=== PATIENT | female | born 1985 | race Caucasian/White ===

== ENCOUNTER 2022-03-11 01:27 | Inpatient (IN) ==
--- NOTE | 2022-03-11 01:42 | Emergency Department Note ---
Impression & Plan Tachycardia Admit to the [facility] ED Provider Note NAME: RADHA LINDSAY AGE: 36 SEX: F ARRIVES VIA: Walk-In INFORMANT: Patient ED PROVIDER(S): Nely Linder DO CHIEF COMPLAINT: Tachycardia PLAN: Disposition: Admit to the [facility] service Condition: Fair MEDICAL DECISION MAKING: This is a 36-year-old female patient who presents to the emergency department with tachycardia. Patient had a sudden onset of tachycardia around 3 PM this afternoon. She wears an apple watch with a heart monitor which alerted her that her heart rate was elevated. A similar event happened 2 days ago when the patient noted that her heart rate was elevated and she came to the emergency department. Patient appears to be in sinus tachycardia at around 140. Despite giving the patient IV fluids and IV Ativan, the rate did not go down. I did review the trend on her watch and it appears that the rate went up abruptly from the 60s to the 130s/140s yesterday afternoon. The patient had a significant work-up done just [address] scan of the chest to rule out PE, test, TSH, and CT scan of the abdomen/pelvis. This was all unremarkable. Patient is developing a migraine here today and will be treated with pain medication. [facility] and [facility] will evaluate for further management. I suggested CT scan of the brain as another possible test to rule out any acute pathology. Triage Nursing notes reviewed and agree with them. Prior medical records reviewed including records from her recent ER visit 2 days ago. Vital Signs: reviewed and remarkable for CARDIAC: No chest pain, sweating, shortness of breath, leg swelling, or irregular heart beat. Differential diagnosis: Dehydration, anxiety, hypothyroidism, pheochromocytoma, medication side effects ER treatment provided: IV Ativan IV normal saline bolus Diagnostics interpreted by me: ECG: Sinus tachycardia at a rate of [address] segment elevation or signs of ischemia. Cardiac Monitoring: Normal sinus rhythm of 130 Laboratory studies: See below HPI: 36/F arrives for evaluation of tachycardia. Patient states that around 3 PM this afternoon her heart rate shot up into the 130s from the 60s for no apparent reason. She denies any other associated symptoms. The patient has a history of chronic abdominal pain and states that she has discomfort when she is up walking around. She underwent a CT scan of the abdomen/pelvis just 2 days ago with no clear source for the abdominal pain. ROS: See above HPI for pertinent positives & negatives. A total of 10 systems reviewed and were otherwise negative. PAST MEDICAL HISTORY:See Below PAST SURGICAL HISTORY:See Below FAMILY HISTORY:See Below SOCIAL HISTORY:See Below HOME MEDICATIONS:See Below ALLERGIES:See Below VITALS:See Below PHYSICAL EXAMINATION: HEENT: Head - normocephalic and atraumatic Pupils are equal, round, and reactive to light. Extraocular eye muscles are intact, and sclera are anicteric. Nose - moist nasal mucosa without discharge. Mouth - moist buccal mucosa. Oropharynx is nonerythematous and there is no tonsillar exudate or edema noted. Neck: Supple; no cervical lymphadenopathy or thyromegaly Heart: Tachycardic rate and regular rhythm. There is a normal S1 and S2 with no murmurs, clicks, or gallops appreciated. Lungs: Clear to auscultation bilaterally with no wheezes, rales, or rhonchi. Abdomen: Soft, completely nontender, nondistended, with good bowel sounds. There are no palpable pulsatile masses or hepatosplenomegaly. There is no guarding, rigidity, or rebound noted. Extremities: No evidence of cyanosis, clubbing, or edema. There are easily palpable peripheral pulses. Skin: warm and dry with good turgor and no rashes. ED COURSE: Times/Reassessments: 140: The patient was evaluated in room A10. A complete history and physical was performed. Previous electronic medical records were reviewed. An order was placed for continuous cardiac monitoring. Patient was in a sinus tachycardia at a rate of 130. An IV lock was initiated and labs were drawn as above. A twelve-lead EKG was obtained. She was given a milligram of IV Ativan. Had no effect on her heart rate. Patient was given a liter of normal saline solution wide open. Again the heart rate was not affected by this. Nely Linder DO Past Med/Surg History Medical History (Updated 03/11/22 @ 07:29 by Nely Linder DO) Anxiety History of umbilical hernia Kidney stones Menometrorrhagia Ovarian cyst Surgical History (Updated 02/21/22 @ 17:30 by Hany Sosa) History of abdominoplasty Social History (Updated 02/21/22 @ 17:31 by Hany Sosa) Smoking Status: Never smoker marital status: Single current occupational status: employed Feels Safe at Home: Yes Allergies Allergies Allergy/AdvReac Type Severity Reaction Status Date / Time NSAIDS (Non-Steroidal AdvReac Intermediate GI ulcer Verified 03/08/22 16:17 Anti-Inflamma Home Meds Home Medications Medication Instructions Recorded Confirmed fluoxetine 20 mg capsule 20 mg PO QAM 02/21/22 03/08/22 multivitamin 1 tab PO QAM 02/21/22 03/08/22 oxycodone-acetaminophen 5 mg-325 1 tab PO Q6 PRN 03/08/22 03/08/22 mg tablet tamsulosin 0.4 mg capsule 0.4 mg PO QAM 03/08/22 03/08/22 Previous Rx's Medication Instructions Recorded ondansetron 4 mg disintegrating 4 mg PO Q6H PRN #10 tab 02/21/22 tablet Results & Data (ED) Vital Signs Vital Signs - 24 hr 03/11/22 01:31 03/11/22 01:40 03/11/22 01:50 Temperature 36.9 C Temperature Source Temporal Artery Scan Pulse Rate 130 H 140 H Pulse Rate from SpO2 Sensor Respiratory Rate 22 15 Respiratory Effort / Characteristics Non-Labored Respiratory Depth Normal Blood Pressure 132/94 132/89 Blood Pressure Mean 106 103 Blood Pressure Position Sitting Pulse Oximetry 99 Oxygen Delivery Method Room Air Sepsis Recent Fever Within 48 Hours No Sepsis New/Unexplained Change in Mental Status N/A Sepsis Action Taken by Nursing No Action Required 03/11/22 01:54 03/11/22 02:09 03/11/22 02:10 Temperature Temperature Source Pulse Rate 130 H 128 H Pulse Rate from SpO2 Sensor 129 H 128 H Respiratory Rate 17 22 Respiratory Effort / Characteristics Respiratory Depth Blood Pressure Blood Pressure Mean Blood Pressure Position Pulse Oximetry 97 97 Oxygen Delivery Method Room Air Sepsis Recent Fever Within 48 Hours Sepsis New/Unexplained Change in Mental Status Sepsis Action Taken by Nursing 03/11/22 02:20 03/11/22 02:30 03/11/22 02:40 Temperature Temperature Source Pulse Rate 131 H 134 H 127 H Pulse Rate from SpO2 Sensor 131 H 135 H 127 H Respiratory Rate 18 22 23 Respiratory Effort / Characteristics Respiratory Depth Blood Pressure Blood Pressure Mean Blood Pressure Position Pulse Oximetry 98 99 98 Oxygen Delivery Method Sepsis Recent Fever Within 48 Hours Sepsis New/Unexplained Change in Mental Status Sepsis Action Taken by Nursing 03/11/22 02:50 03/11/22 03:00 03/11/22 03:10 Temperature Temperature Source Pulse Rate 136 H 137 H 140 H Pulse Rate from SpO2 Sensor 137 H 137 H 140 H Respiratory Rate 19 20 18 Respiratory Effort / Characteristics Respiratory Depth Blood Pressure Blood Pressure Mean Blood Pressure Position Pulse Oximetry 100 99 99 Oxygen Delivery Method Sepsis Recent Fever Within 48 Hours Sepsis New/Unexplained Change in Mental Status Sepsis Action Taken by Nursing 03/11/22 03:20 03/11/22 03:30 03/11/22 03:40 Temperature Temperature Source Pulse Rate 138 H 133 H 130 H Pulse Rate from SpO2 Sensor 137 H 133 H 131 H Respiratory Rate 21 21 23 Respiratory Effort / Characteristics Respiratory Depth Blood Pressure 116/74 Blood Pressure Mean 88 Blood Pressure Position Pulse Oximetry 100 99 99 Oxygen Delivery Method Sepsis Recent Fever Within 48 Hours Sepsis New/Unexplained Change in Mental Status Sepsis Action Taken by Nursing 03/11/22 03:54 03/11/22 04:00 03/11/22 04:10 Temperature Temperature Source Pulse Rate Pulse Rate from SpO2 Sensor 133 H 131 H 127 H Respiratory Rate Respiratory Effort / Characteristics Respiratory Depth Blood Pressure Blood Pressure Mean Blood Pressure Position Pulse Oximetry 99 99 99 Oxygen Delivery Method Sepsis Recent Fever Within 48 Hours Sepsis New/Unexplained Change in Mental Status Sepsis Action Taken by Nursing 03/11/22 04:23 03/11/22 04:28 03/11/22 04:30 Temperature Temperature Source Pulse Rate 133 H 134 H Pulse Rate from SpO2 Sensor 134 H 134 H Respiratory Rate 16 15 Respiratory Effort / Characteristics Respiratory Depth Blood Pressure 112/80 112/80 123/83 Blood Pressure Mean 90 90 96 Blood Pressure Position Pulse Oximetry 98 96 Oxygen Delivery Method Sepsis Recent Fever Within 48 Hours Sepsis New/Unexplained Change in Mental Status Sepsis Action Taken by Nursing 03/11/22 05:00 03/11/22 05:43 03/11/22 05:45 Temperature Temperature Source Pulse Rate 135 H 130 H 125 H Pulse Rate from SpO2 Sensor 136 H 124 H Respiratory Rate 16 15 14 Respiratory Effort / Characteristics Respiratory Depth Blood Pressure 144/95 H 132/94 Blood Pressure Mean 111 106 Blood Pressure Position Pulse Oximetry 97 98 Oxygen Delivery Method Sepsis Recent Fever Within 48 Hours Sepsis New/Unexplained Change in Mental Status Sepsis Action Taken by Nursing 03/11/22 06:00 03/11/22 06:30 03/11/22 07:00 Temperature Temperature Source Pulse Rate 125 H 127 H 127 H Pulse Rate from SpO2 Sensor 125 H 127 H 128 H Respiratory Rate 16 17 15 Respiratory Effort / Characteristics Respiratory Depth Blood Pressure 138/85 136/82 133/88 Blood Pressure Mean 102 100 103 Blood Pressure Position Pulse Oximetry 96 97 97 Oxygen Delivery Method Sepsis Recent Fever Within 48 Hours Sepsis New/Unexplained Change in Mental Status Sepsis Action Taken by Nursing Laboratory Data Result diagrams: 03/11/22 Unknown 03/11/22 01:45 Lab Results 03/11/22 03/11/22 03/11/22 Range/Units 01:45 04:24 Unknown WBC 11.03 H (4.8-10.8) K/uL RBC 4.16 L (4.2-5.4) M/uL Hgb 12.8 (12.0-16.0) g/dL Hct 38.0 (37-47) % MCV 91.3 (80-100) fL MCH 30.8 (25-34) pg MCHC 33.7 (32-36) g/dL RDW Std Deviation 44.2 (36.4-46.3) fL RDW Coeff of Mak 13.3 (11.5-14.5) % Plt Count 389 (130-400) K/uL MPV 8.9 (7.4-10.4) fL Immature Gran % (Auto) 0.5 % Neut % (Auto) 58.9 % Lymph % (Auto) 31.5 % [place] % (Auto) 6.5 % Eos % (Auto) 2.1 % Baso % (Auto) 0.5 % Neut # (Auto) 6.50 (1.4-6.5) K/uL Lymph # (Auto) 3.47 H (1.2-3.4) K/uL [place] # (Auto) 0.72 H (0.11-0.59) K/uL Eos # (Auto) 0.23 (0-0.5) K/uL Baso # (Auto) 0.05 (0-0.2) K/uL Immature Gran # (Auto) 0.06 H (0.00-0.02) K/uL Sodium 137 (136-145) mmol/L Potassium 3.5 (3.5-5.1) mmol/L Chloride 102 (98-107) mmol/L Carbon Dioxide 26 (21-32) mmol/L Anion Gap 9 (3-11) BUN 6 (6-23) mg/dl Creatinine 0.64 (0.6-1.2) mg/dl Est Cr Clr Drug Dosing 109.7 ml/min Est GFR ( Amer) 131.2 ml/min Est GFR (Non-Af Amer) 113.2 ml/min BUN/Creatinine Ratio 9.4 L (10-20) Glucose 96 (70-99(Fasting)) mg/dl Calcium 9.2 (8.5-10.1) mg/dl Magnesium 1.6 L (1.7-2.4) mg/dl Total Bilirubin 0.3 (0.2-1.0) mg/dl AST 15 (13-39) U/L ALT 9 (7-52) U/L Alkaline Phosphatase 49 (34-104) U/L Total Protein 7.2 (6.0-8.3) gm/dl Albumin 4.4 (3.4-5.0) gm/dl Globulin 2.8 (2.5-4.0) gm/dl Albumin/Globulin Ratio 1.6 (0.9-2) SARS-CoV-2, RNA, NAAT NEGATIVE (NEGATIVE) Administered Medications Discontinued Medications Hydromorphone HCl (Hydromorphone Inj 1 Mg/Ml Syringe) 1 mg IV NOW STA Stop: 03/11/22 03:59 Last Admin: 03/11/22 04:21 Dose: 1 mg Documented by: [id number] Sodium Chloride (Nss 1000ml) 1,000 mls @ 999 mls/hr IV .Q1H1M ONE Stop: 03/11/22 03:29 Last Infusion: 03/11/22 04:13 Dose: 0 mls/hr Documented by: [id number] Admin: 03/11/22 02:38 Dose: 999 mls/hr Documented by: [id number] Magnesium Sulfate/Dextrose (Magnesium Sulfate / D5w) 1 gm in 100 mls @ 50 mls/hr IV Q2H STA Stop: 03/11/22 07:22 Last Admin: 03/11/22 05:38 Dose: 50 mls/hr Documented by: [id number] Lorazepam (Lorazepam 2 Mg/1 Ml Vial) 1 mg IV NOW STA Stop: 03/11/22 01:58 Last Admin: 03/11/22 02:03 Dose: 1 mg Documented by: [id number] Ondansetron HCl (Ondansetron Inj 2 Mg/Ml 2 Ml Vial) 4 mg IV NOW STA Stop: 03/11/22 03:58 Last Admin: 03/11/22 04:21 Dose: 4 mg Documented by: [id number] Imaging Data Radiologist's Impression: Head CT 03/11/22 05:[address] DOSE: 614.27 mGy.cm HISTORY: headache TECHNIQUE: Multiaxial CT images of the head were performed without the use of intravenous contrast. Automated exposure control was utilized for this study. A dose lowering technique was utilized adhering to the principles of ALARA. Comparison: None. Findings: The paranasal sinuses and mastoid air cells are clear. The calvarium and skull base are intact. The ventricles and sulci are within normal limits. There is no mass, hematoma, midline shift, or acute infarct. Impression: No acute intracranial abnormality. ACT 112: Negative or not required by law. Electronically signed by: Suresh Carrion M.D. 03/11/2022 7:24 AM Discharge Plan Visit Data Chief Complaint: Tachycardia Stated Complaint: HIGH HEART RATE ED Provider: Nely Linder Discharge Problem: Tachycardia
[2022-03-11] MEDS ORDERED: LORazepam 2 MG/1 ML VIAL IV STA (01:57)
[2022-03-11 02:04] LABS: Basophils # (auto) 0.05 K/uL (0-0.2); Basophils % (auto) 0.5 %; Eosinophils # (auto) 0.23 K/uL (0-0.5); Eosinophils % (auto) 2.1 %; Hemoglobin 12.8 g/dL (12.0-16.0); Immature Granulocytes # (auto) 0.06 K/uL (0.00-0.02); Immature Granulocytes % (auto) 0.5 %; Lymphocytes # (auto) 3.47 K/uL (1.2-3.4); Lymphocytes % (auto) 31.5 %; Mean Corpuscular Hemoglobin 30.8 pg (25-34); Mean Corpuscular Hgb Conc 33.7 g/dL (32-36); Mean Corpuscular Volume 91.3 fL (80-100); Mean Platelet Volume 8.9 fL (7.4-10.4); Monocytes # (auto) 0.72 K/uL (0.11-0.59); Monocytes % (auto) 6.5 %; Neutrophils % (auto) 58.9 %; Platelet Count 389 K/uL (130-400); RDW Coefficient of Variation 13.3 % (11.5-14.5); RDW Standard Deviation 44.2 fL (36.4-46.3); Red Blood Count 4.16 M/uL (4.2-5.4); White Blood Count 11.03 K/uL (4.8-10.8)
[2022-03-11] MEDS ORDERED: SODIUM CHLORIDE 0.9% 1000ML 1,000 ML IV ONE (02:29)
[2022-03-11 02:30] LABS: Albumin Globulin Ratio 1.6 (0.9-2); Albumin Level 4.4 gm/dl (3.4-5.0); BUN Creatinine Ratio 9.4 (10-20); Bilirubin,Total 0.3 mg/dl (0.2-1.0); Calcium 9.2 mg/dl (8.5-10.1); Creatinine Clr Calc Pharmacy 109.7 ml/min; Est GFR (African American) 131.2 ml/min; Est GFR (Non-African American) 113.2 ml/min; Globulin 2.8 gm/dl (2.5-4.0); Magnesium 1.6 mg/dl (1.7-2.4); Potassium 3.5 mmol/L (3.5-5.1); Total Protein 7.2 gm/dl (6.0-8.3)
[2022-03-11] MEDS ORDERED: ONDANSETRON INJ 2 MG/ML 2 ML VIAL IV STA (03:57)
[2022-03-11] MEDS ORDERED: HYDROmorphone INJ 1 MG/ML SYRINGE IV STA (03:58)
[2022-03-11] MEDS ORDERED: MAGNESIUM SULFATE / D5W 1 GM/100 ML BAG IV STA (05:23)
--- NOTE | 2022-03-11 07:26 | CT Scan Report ---
HEAD CT NONCONTRAST CT DOSE: 614.27 mGy.cm HISTORY: headache TECHNIQUE: Multiaxial CT images of the head were performed without the use of intravenous contrast. A utomated exposure control was utilized for this study. A dose lowering technique was utilized adheri ng to the principles of ALARA. Comparison: None. Findings: The paranasal sinuses and mastoid air cells are clear. The calvarium and skull base are int act. The ventricles and sulci are within normal limits. There is no mass, hematoma, midline shift, or acute infarct. Impression: No acute intracranial abnormality. ACT 112: Negative or not required by law. Electronically signed by: Suresh Carrion M.D. 03/11/2022 7:24 AM
[2022-03-11] MEDS ORDERED: ACETAMINOPHEN 325 MG TAB PO PRN (07:53)
[2022-03-11] MEDS ORDERED: POLYETHYLENE (MIRALAX) 17 GM PACK PO PRN (07:53)
[2022-03-11] MEDS ORDERED: SODIUM CHLORIDE 0.9% 1000ML 1,000 ML IV SCH (07:53)
[2022-03-11] MEDS ORDERED: ONDANSETRON INJ 2 MG/ML 2 ML VIAL IV PRN (07:53)
[2022-03-11] MEDS ORDERED: METOPROLOL TARTRATE 1 MG/ML VIAL IV PRN (07:53)
[2022-03-11] MEDS ORDERED: NITROGLYCERIN SL 0.4 MG/TAB TAB SL PRN (07:53)
[2022-03-11] MEDS ORDERED: POTASSIUM CHLORIDE CRTAB 20 MEQ TABCR PO STA (08:30)
[2022-03-11 08:48] LABS: Amphetamines+Metham, Urine Neg (Neg); Barbiturates, Urine Neg (Neg); Benzodiazepine, Urine Neg (Neg); Cocaine, Urine Neg (Neg); MDMA (Ecstacy), Urine Neg (Neg); Methadone, Urine Neg (Neg); Opiate, Urine Neg (Neg); Phencyclidine, Urine Neg (Neg)
--- NOTE | 2022-03-11 08:54 | Cardiology Consultation ---
Date of Consultation March 11, 2022 Assessment & Plan (1) Tachycardia: (2) Hypomagnesemia: (3) Acute flank pain: Patient admitted with complaints of palpitations with HR's at home ranging 130-160's. Confirmed to be sinus tachycardia on arrival EKG and telemetry. She reports poor PO intake of hydration/liquids for several weeks with ongoing abdominal/pelvic pain. She had been diagnosed with kidney stone and believes one passed on Friday. She also has been diagnosed with possible uterine fibroid, but is uncertain if this is causing her symptoms. Her magnesium and potassium were low on admission and this has been supplemented. Will recheck. Consider supplement on discharge. Hydration encouraged. HR response is likely physiologic based on dehydration and electrolyte disturbance. However, given persistent HR's around 100 currently, will try adding low dose metoprolol succinate 12.5 mg daily to aid with HR's Her echo is pending to evaluate structural heart disease. Further recommendations after review of echo and response to metoprolol and electrolyte supplementation. Case discussed with Dr. Biswas. Will follow. Supervising Physician Co-Signing Physician Notes I have reviewed the medical record and discussed the case with Ms. Carmen. I have seen and examined the patient. I agree with the plan as outlined above. Her heart rate seem to be far better controlled with the beta-norberto but also believe IV hydration and analgesia have probably helped more. History of Present Illness Reason for Consultation: Tachycardia Requesting Physician: Dr. Massey Attending Physician: Dr. Biswas History of Present Illness Patient is a 36 year old female with history of remote lyme disease, depression, large uterine fibroid, recent nephrolithiasis, who came to [facility] with complaints of palpitations. Initially evaluated on Friday in the ER for HR's persistently elevated around 130 bpm. Earlier in the day she felt she had passed a kidney stone. She noted HR's fluctuating at home ranging 130-170's at times on her apple watch. She noted dizziness during this time. She came to ER for evaluation. SHe was provided with fluids and HR's improved and she was discharged. 2 days later, she once again felt her HR was elevated at home and would not fall below 130's. She has been having alot of lower pelvic pain and was found to have uterine fibroid, possibly contributing. however she is also to have a colonoscopy and EGD for further evaluation. She admits to persistent nausea and lack of appetite. Has not been eating/drinking normally. On admission, EKG revealed sinus tach with HR's in the 130's. Magnesium was low. Potassium was low. These were supplemented. Given IV fluids. Since admission, HR's have trended lower and currently around 100 bpm. She denies cardiac history. She reports being told she had a heart murmur as a child, but this went away. No recent echo. At time of consult, feeling ok. She denies recent chest pain or SOB. No dizziness or lightheadedness. No orthopnea, PND or edema. No fever, cough, chills. Ongoing pelvic pain reported. Allergies Allergy/AdvReac Type Severity Reaction Status Date / Time NSAIDS (Non-Steroidal AdvReac Intermediate GI ulcer Verified 03/08/22 16:17 Anti-Inflamma Home Medications Medication Instructions Recorded Confirmed Type fluoxetine 20 mg capsule 20 mg PO QAM 02/21/22 03/08/22 History multivitamin 1 tab PO QAM 02/21/22 03/08/22 History ondansetron 4 mg disintegrating 4 mg PO Q6H PRN #10 tab 02/21/22 03/08/22 Rx tablet oxycodone-acetaminophen 5 mg-325 1 tab PO Q6 PRN 03/08/22 03/08/22 History mg tablet tamsulosin 0.4 mg capsule 0.4 mg PO QAM 03/08/22 03/08/22 History Patient History Medical History (Updated 03/11/22 @ 11:44 by Lia Carmen PA-C) Anxiety History of umbilical hernia Kidney stones Menometrorrhagia Ovarian cyst Surgical History (Updated 02/21/22 @ 17:30 by Hany Sosa) History of abdominoplasty Social History (Updated 02/21/22 @ 17:31 by Hany Sosa) Smoking Status: Never smoker Hx Alcohol Use: Yes Alcohol type: hard liquor Hx Substance Use: No Preferred Language: Belarusian Communication Ability: Effective Cut Off Sawyer Log Required: No Beliefs That Will Affect Care: None marital status: Single Current Living Situation: Family and Significant Other current occupational status: employed Other Information That Helps Us Care for You: No Feels Safe at Home: Yes Safety Concerns: Feels Safe At This Time Assistive Devices: None Review of Systems Review of Systems: All systems reviewed & are unremarkable except as noted in HPI & below Physical Exam Constitutional: WD/WN, vitals as above Neck: trachea midline, no thyromegaly Respiratory: normal respiratory effort, lungs clear to auscultation Cardiovascular: Rate/Rhythm: regular rate and regular rhythm Heart Sounds: normal S1 and normal S2; no murmur Vessels: no JVD Extremities: no edema Gastrointestinal (Abdomen): normal bowel sounds, soft, nontender, no hepatosplenomegaly Skin: no rashes, warm and dry Neurologic: PERRL, EOMI, accommodation nl, no face palsy, no dysarthria Psychiatric: A+Ox3, euthymic affect Results & Data ([facility]) Vital Signs (Past 12 Hours) Vital Signs Temp Pulse Resp BP Pulse Ox 03/11/22 07:00 127 H 15 133/88 97 03/11/22 06:30 127 H 17 136/82 97 03/11/22 06:00 125 H 16 138/85 96 03/11/22 05:45 125 H 14 132/94 98 03/11/22 05:43 130 H 15 03/11/22 05:00 135 H 16 144/95 H 97 03/11/22 04:30 134 H 15 123/83 96 03/11/22 04:28 112/80 03/11/22 04:23 133 H 16 112/80 98 03/11/22 04:10 99 03/11/22 04:00 99 03/11/22 03:54 99 03/11/22 03:40 130 H 23 116/74 99 03/11/22 03:30 133 H 21 99 03/11/22 03:20 138 H 21 100 03/11/22 03:10 140 H 18 99 03/11/22 03:00 137 H 20 99 03/11/22 02:50 136 H 19 100 03/11/22 02:40 127 H 23 98 03/11/22 02:30 134 H 22 99 03/11/22 02:20 131 H 18 98 03/11/22 02:10 128 H 22 97 03/11/22 02:09 130 H 17 97 03/11/22 01:50 132/89 03/11/22 01:40 140 H 15 03/11/22 01:31 36.9 C 130 H 22 132/94 99 Laboratory Results 03/11/22 03/11/2222 Range/Units Unknown 10:43 08:24 WBC 11.03 H (4.8-10.8) K/uL RBC 4.16 L (4.2-5.4) M/uL Hgb 12.8 (12.0-16.0) g/dL Hct 38.0 (37-47) % MCV 91.3 (80-100) fL MCH 30.8 (25-34) pg MCHC 33.7 (32-36) g/dL RDW Std Deviation 44.2 (36.4-46.3) fL RDW Coeff of Mak 13.3 (11.5-14.5) % Plt Count 389 (130-400) K/uL MPV 8.9 (7.4-10.4) fL Immature Gran % (Auto) 0.5 % Neut % (Auto) 58.9 % Lymph % (Auto) 31.5 % [place] % (Auto) 6.5 % Eos % (Auto) 2.1 % Baso % (Auto) 0.5 % Neut # (Auto) 6.50 (1.4-6.5) K/uL Lymph # (Auto) 3.47 H (1.2-3.4) K/uL [place] # (Auto) 0.72 H (0.11-0.59) K/uL Eos # (Auto) 0.23 (0-0.5) K/uL Baso # (Auto) 0.05 (0-0.2) K/uL Immature Gran # (Auto) 0.06 H (0.00-0.02) K/uL Sodium (136-145) mmol/L Potassium 3.9 (3.5-5.1) mmol/L Chloride (98-107) mmol/L Carbon Dioxide (21-32) mmol/L Anion Gap (3-11) BUN (6-23) mg/dl Creatinine (0.6-1.2) mg/dl Est Cr Clr Drug Dosing ml/min Est GFR ( Amer) ml/min Est GFR (Non-Af Amer) ml/min BUN/Creatinine Ratio (10-20) Glucose (70-99(Fasting)) mg/dl Calcium (8.5-10.1) mg/dl Magnesium 2.0 (1.7-2.4) mg/dl Total Bilirubin (0.2-1.0) mg/dl AST (13-39) U/L ALT (7-52) U/L Alkaline Phosphatase (34-104) U/L Troponin I High Sens 2.5 (0-14) pg/ml Total Protein (6.0-8.3) gm/dl Albumin (3.4-5.0) gm/dl Globulin (2.5-4.0) gm/dl Albumin/Globulin Ratio (0.9-2) Urine Opiates Screen (Neg) Ur Methadone, Qual (Neg) Urine Barbiturates (Neg) Ur Phencyclidine (PCP) (Neg) U Amphetamin/Meth Scrn (Neg) MDMA (Ecstasy) Screen (Neg) U Benzodiazepines Scrn (Neg) Ur Cocaine Metabolite (Neg) U Marijuana (THC) Screen (Neg) SARS-CoV-2, RNA, NAAT (NEGATIVE) 03/11/22 03/11/22 03/11/22 Range/Units 04:24 02:36 01:45 WBC (4.8-10.8) K/uL RBC (4.2-5.4) M/uL Hgb (12.0-16.0) g/dL Hct (37-47) % MCV (80-100) fL MCH (25-34) pg MCHC (32-36) g/dL RDW Std Deviation (36.4-46.3) fL RDW Coeff of Mak (11.5-14.5) % Plt Count (130-400) K/uL MPV (7.4-10.4) fL Immature Gran % (Auto) % Neut % (Auto) % Lymph % (Auto) % [place] % (Auto) % Eos % (Auto) % Baso % (Auto) % Neut # (Auto) (1.4-6.5) K/uL Lymph # (Auto) (1.2-3.4) K/uL [place] # (Auto) (0.11-0.59) K/uL Eos # (Auto) (0-0.5) K/uL Baso # (Auto) (0-0.2) K/uL Immature Gran # (Auto) (0.00-0.02) K/uL Sodium 137 (136-145) mmol/L Potassium 3.5 (3.5-5.1) mmol/L Chloride 102 (98-107) mmol/L Carbon Dioxide 26 (21-32) mmol/L Anion Gap 9 (3-11) BUN 6 (6-23) mg/dl Creatinine 0.64 (0.6-1.2) mg/dl Est Cr Clr Drug Dosing 109.7 ml/min Est GFR ( Amer) 131.2 ml/min Est GFR (Non-Af Amer) 113.2 ml/min BUN/Creatinine Ratio 9.4 L (10-20) Glucose 96 (70-99(Fasting)) mg/dl Calcium 9.2 (8.5-10.1) mg/dl Magnesium 1.6 L (1.7-2.4) mg/dl Total Bilirubin 0.3 (0.2-1.0) mg/dl AST 15 (13-39) U/L ALT 9 (7-52) U/L Alkaline Phosphatase 49 (34-104) U/L Troponin I High Sens (0-14) pg/ml Total Protein 7.2 (6.0-8.3) gm/dl Albumin 4.4 (3.4-5.0) gm/dl Globulin 2.8 (2.5-4.0) gm/dl Albumin/Globulin Ratio 1.6 (0.9-2) Urine Opiates Screen Neg (Neg) Ur Methadone, Qual Neg (Neg) Urine Barbiturates Neg (Neg) Ur Phencyclidine (PCP) Neg (Neg) U Amphetamin/Meth Scrn Neg (Neg) MDMA (Ecstasy) Screen Neg (Neg) U Benzodiazepines Scrn Neg (Neg) Ur Cocaine Metabolite Neg (Neg) U Marijuana (THC) Screen Neg (Neg) SARS-CoV-2, RNA, NAAT NEGATIVE (NEGATIVE) Diagnostic Findings Telemetry reviewed: Sinus tachycardia with HR's ranging around 100-110 bpm. Improved HR's from admission. No evidence of afib/atrial flutter/atrial tach/SVT. EKG on admission: Sinus tachycardia Possible Left atrial enlargement No previous ECGs available Repeat EKG: Sinus tachycardia, no acute changes Head CT report reviewed: Impression: No acute intracranial abnormality. Medications Administered Current Inpatient Medications Acetaminophen (Acetaminophen 325 Mg Tab) 650 mg PO Q4H PRN PRN Reason: Pain or Fever Stop: 04/10/22 07:52 Last Admin: 03/11/22 10:33 Dose: 650 mg Documented by: Enoxaparin Sodium (Enoxaparin Inj 40 Mg/0.4 Ml Syr) 40 mg SQ Q24H [facility] Stop: 04/10/22 08:59 Last Admin: 03/11/22 09:21 Dose: 40 mg Documented by: Fluoxetine HCl (Fluoxetine Hcl 20 Mg Cap) [address] [facility] Stop: 04/10/22 08:59 Last Admin: 03/11/22 09:20 Dose: 20 mg Documented by: Sodium Chloride (Nss 1000ml) 1,000 mls @ 100 mls/hr IV .Q10H [facility] Stop: 03/11/22 17:52 Last Admin: 03/11/22 09:20 Dose: 100 mls/hr Documented by: Metoprolol Succinate (Metoprolol Succ 25mg Ext Rel Tab) 12.[address] [facility] Stop: 04/10/22 10:29 Last Admin: 03/11/22 11:06 Dose: 12.5 mg Documented by: Metoprolol Tartrate (Metoprolol Tartrate 1 Mg/Ml Vial) 2.5 mg IV Q6 PRN; Protocol PRN Reason: Tachycardia Stop: 04/10/22 07:52 Nitroglycerin (Nitroglycerin Sl 0.4 Mg/Tab Tab) 0.4 mg SL UD PRN PRN Reason: Chest Pain Stop: 04/10/22 07:52 Ondansetron HCl (Ondansetron Inj 2 Mg/Ml 2 Ml Vial) 4 mg IV Q6H PRN PRN Reason: Nausea Stop: 04/10/22 07:52 Polyethylene Glycol (Polyethylene (Miralax) 17 Gm Pack) 17 gm PO DAILY PRN PRN Reason: Constipation Stop: 04/10/22 07:52 Tamsulosin HCl (Tamsulosin Hcl 0.4 Mg Cap) 0.[address] [facility] Stop: 04/10/22 08:59 Last Admin: 03/11/22 09:20 Dose: 0.4 mg Documented by:
--- NOTE | 2022-03-11 09:08 | History and Physical Report ---
DATE OF ADMISSION: 03/11/2022. CHIEF COMPLAINT: Tachycardia. HISTORY OF PRESENT ILLNESS: A 36-year-old female with past medical history significant for uterine leiomyoma, tension headache, migraines, chronic pelvic pain, depression, history of Lyme disease, who presents with palpitations. The patient on last Friday too was in the ER, at that time, she had nausea, vomiting and in the ER her imaging studies of CT of the chest and CT abdomen and pelvis, except for possible uterine fibroid imaging studies were unremarkable. With the fluids she improved and her heart rate was in the 110s and she was sent home, thought to be also anxiety related, but today again when she was in the kitchen, she again noticed palpitations and her Apple watch showed heart rate in 160s, it stayed in 160 for some time. It was not coming down, she also felt some dizziness, which prompted her to come to the ER. In ER consistently staying in 130s to 140s. Electrolytes are okay except for magnesium 1.6. Because of persistent tachycardia, called for admission. The patient denies any chest pain currently. The patient says when her heart rate was in the 160s, she had some chest tightness and some shortness of breath, she says that when her heart rate goes up, she also feels anxious, which is not helping her. She also has some headache episodes, has blurred vision, no earache, no runny nose. She has sore throat few times since last 1 month. No difficulty swallowing. She has ongoing pelvic pain for several weeks, since which is not eating or drinking much, not having much appetite. Today has no nausea, no vomiting, has ongoing chronic pelvic pain. Her bowel movements are alternating sometimes diarrhea, sometimes constipation, no blood in the stools. Normal bladder movements. No hematuria, no swelling in the legs. She has some rash on her neck on and off. She was started on fluoxetine in December of this year and she is supposed to take Flomax for 4 weeks and she is taking since last 3 weeks for kidney stones and she takes [id number] multivitamins. ALLERGIES: NSAIDs. PAST MEDICAL HISTORY: As mentioned above. PAST SURGICAL HISTORY: , colonoscopy, EGD, hysteroscopy with biopsy and polypectomy, endometrial ablation, incisional hernia repair, laparoscopy. MEDICATIONS: The patient is on Prozac 20 mg p.o. daily, Flomax 0.4 mg p.o. daily, multivitamins 1 tablet p.o. daily. FAMILY HISTORY: Significant for mother had cervical cancer; paternal grandfather had colon cancer, maternal grandmother had diabetes; grandfather had skin cancer. SOCIAL HISTORY: Former smoker, quit in 2010. Alcohol. Social drinking, no drug use. REVIEW OF SYSTEMS: As per HPI. Rest of the review of systems is negative. PHYSICAL EXAMINATION: GENERAL: The patient is of moderate build, not in acute distress. VITAL SIGNS: Temperature 36.9, pulse 130, respiratory rate 20, blood pressure 112/80, oxygen 99% on room air. HEENT: Pupils equal, round and reactive to light. Oral mucosa moist. NECK: No JVD. No neck masses. CARDIOVASCULAR: S1 and S2 heard. Tachycardia. No murmurs. RESPIRATORY SYSTEM: Normal AP diameter. No accessory muscle use. No wheezing, no crackles. ABDOMEN: Soft, bowel sounds present. Mild left lower quadrant tenderness. No guarding, no rigidity. CENTRAL NERVOUS SYSTEM: Cranial nerves II-XII grossly intact, nonfocal. EXTREMITIES: No edema, no erythema. LABORATORY DATA: WBC 11, hemoglobin 12.8, hematocrit 38, platelets 389. Sodium 137, potassium 3.5, chloride 102, bicarbonate 26, BUN 6, creatinine 0.6, serum glucose 96, calcium 9.2, magnesium 1.2, total bilirubin 0.3, AST 15, ALT 9, alkaline phosphatase 49. SARS-CoV-2 RNA negative. EKG: Sinus tachycardia at a rate of 132, no significant change was found. ASSESSMENT AND PLAN: This is a 36-year-old female presents with persistent tachycardia. 1. Persistent tachycardia, happened last Friday and again today, heart rate sometimes going to 160s as per the patient, etiology unclear. Currently, we will also check urine for drug screen. Follow echocardiogram. Follow repeat cardiac enzymes, monitor in tele and consult Cardiology for further recommendations.IV lopressor prn. 2. Depression, on fluoxetine. 3. Abdominal pain, alternating diarrhea and constipation.As per patinet plan for egd and colonoscopy. Hypomagnesia. Will replace. DVT px Lovenox. Disposition Monitor in tele. Full code. Dictation Ends Here. Job ID: [id number] [facility]
[2022-03-11] MEDS: FLUoxetine HCL 20 MG CAP PO SCH (09:20)
[2022-03-11] MEDS: TAMSULOSIN HCL 0.4 MG CAP PO SCH (09:20)
[2022-03-11] MEDS: ENOXAPARIN INJ 40 MG/0.4 ML SYR SQ SCH (09:21)
--- NOTE | 2022-03-11 10:15 | Communication Note ---
Date of Service: March 11, 2022 36-year-old woman with history of Uterine leiomyoma, tension headache, migraines, chronic pelvic pain, depression, who presents with palpitations Patient seen and examined this morning. Denies any palpitations at this time. Does report headache. No dizziness at this time Physical exam is grossly unremarkable Lab work notable for magnesium of 1.6, potassium is 3.5 Palpitations Sinus tachycardia Continue electrolyte repletion [magnesium and potassium] Was started on metoprolol this morning by cardiology Follow-up risk analyst recommendation Agree with other plans as detailed by Dr Massey in H&P this morning
[2022-03-11] MEDS: METOPROLOL SUCC 25MG EXT REL TAB PO SCH (11:06)
[2022-03-11 11:26] LABS: Potassium 3.9 mmol/L (3.5-5.1)
[2022-03-11] MEDS ORDERED: traMADol HCL 50 MG TABLET PO PRN (14:09)
--- NOTE | 2022-03-11 14:11 | Electrocardiogram Report ---
Test Reason : Blood Pressure : / mmHG Vent. Rate : 132 BPM Atrial Rate : 132 BPM P-R Int : 140 ms QRS Dur : 062 ms QT Int : 300 ms P-R-T Axes : 050 046 051 degrees QTc Int : 444 ms Poor data quality, interpretation may be adversely affected Sinus tachycardia Otherwise normal ECG When compared with ECG of 08-MAR-2022 15:34, No significant change was found Confirmed by Chad Del Castillo ([id number]) on 03/11/2022 2:11:11 PM Referred By: REFERRED SELF Confirmed By:Paulino Del Castillo
[2022-03-12 05:44] LABS: Basophils # (auto) 0.04 K/uL (0-0.2); Basophils % (auto) 0.5 %; Eosinophils # (auto) 0.34 K/uL (0-0.5); Eosinophils % (auto) 4.4 %; Hematocrit (blood only) 35.7 % (37-47); Hemoglobin 11.9 g/dL (12.0-16.0); Immature Granulocytes # (auto) 0.06 K/uL (0.00-0.02); Immature Granulocytes % (auto) 0.8 %; Lymphocytes # (auto) 2.94 K/uL (1.2-3.4); Lymphocytes % (auto) 38.4 %; Mean Corpuscular Hemoglobin 30.4 pg (25-34); Mean Corpuscular Hgb Conc 33.3 g/dL (32-36); Mean Corpuscular Volume 91.3 fL (80-100); Mean Platelet Volume 8.9 fL (7.4-10.4); Monocytes # (auto) 0.67 K/uL (0.11-0.59); Monocytes % (auto) 8.7 %; Neutrophils # (auto) 3.61 K/uL (1.4-6.5); Neutrophils % (auto) 47.2 %; Platelet Count 313 K/uL (130-400); RDW Coefficient of Variation 13.3 % (11.5-14.5); RDW Standard Deviation 44.3 fL (36.4-46.3); Red Blood Count 3.91 M/uL (4.2-5.4); White Blood Count 7.66 K/uL (4.8-10.8)
[2022-03-12 06:11] LABS: Calcium 8.6 mg/dl (8.5-10.1); Creatinine Clr Calc Pharmacy 116.5 ml/min; Est GFR (Non-African American) 115.6 ml/min; Magnesium 1.8 mg/dl (1.7-2.4); Potassium 4.2 mmol/L (3.5-5.1)
[2022-03-12] MEDS: ENOXAPARIN INJ 40 MG/0.4 ML SYR SQ SCH (08:06)
[2022-03-12] MEDS: FLUoxetine HCL 20 MG CAP PO SCH (08:06)
[2022-03-12] MEDS: METOPROLOL SUCC 25MG EXT REL TAB PO SCH (08:06)
[2022-03-12] MEDS: TAMSULOSIN HCL 0.4 MG CAP PO SCH (08:06)
--- NOTE | 2022-03-12 08:54 | Cardiology Progress Note ---
Date of Service March 12, 2022 Assessment & Plan (1) Tachycardia: (2) Hypomagnesemia: (3) Acute flank pain: Plan: Patient admitted with complaints of palpitations with HR's at home ranging 130- 160's. Confirmed to be sinus tachycardia on arrival EKG and telemetry. Likely secondary to dehydration, electrolyte disturbances in setting of abdominal/pelvic pain. Heart rates improved with supplementation of potassium and magnesium. Mag level 1.8 this morning. Recommend mag ox 400 mg daily on discharge. Continue low dose metoprolol succinate 25 mg 1/2 tab daily (12.5 mg) for palpitations. Consider outpatient ZIO monitor, to be arranged by PCP. R/O SVT Echo was unremarkable. Monitor electrolytes as outpatient. Stable for discharge today. Discussed with Dr. Biswas Admission and Anticipated Discharge Date Admission Date: March 11, 2022 Supervising Physician Co-Signing Physician Notes I have seen and examined the patient. I reviewed the medical record and discussed the case with Ms. Carmen. I agree with the plan as outlined above. If the patient is discharged I think that she should have follow-up with us at least once and I will make those arrangements. Subjective Patient feeling well. Denies acute complaints. Heart rates have been well controlled overnight. Tolerating metoprolol. No palpitations or tachypalpitations. No chest pain or dyspnea. Requesting discharge today if possible Review of Systems Review of Systems: All systems reviewed & are unremarkable except as noted in HPI & below Physical Exam Constitutional: WD/WN, vitals as above Neck: trachea midline, no thyromegaly Respiratory: normal respiratory effort, lungs clear to auscultation Cardiovascular: Rate/Rhythm: regular rate and regular rhythm Heart Sounds: normal S1 and normal S2; no murmur Vessels: no JVD Extremities: no edema Gastrointestinal (Abdomen): normal bowel sounds, soft, nontender, no h epatosplenomegaly Skin: no rashes, warm and dry Neurologic: PERRL, EOMI, accommodation nl, no face palsy, no dysarthria Psychiatric: A+Ox3, euthymic affect Results & Data ([facility]) Vital Signs (Past 12 Hours) Vital Signs Temp Pulse Resp BP Pulse Ox 03/12/22 07:39 36.5 C 79 19 110/67 96 03/12/22 03:24 36.4 C L 73 18 109/71 96 03/11/22 23:22 36.5 C 77 18 107/72 96 Laboratory Results 03/12/22 03/12/22 03/11/22 Range/Units 05:20 05:20 20:08 WBC 7.66 (4.8-10.8) K/uL RBC 3.91 L (4.2-5.4) M/uL Hgb 11.9 L (12.0-16.0) g/dL Hct 35.7 L (37-47) % MCV 91.3 (80-100) fL MCH 30.4 (25-34) pg MCHC 33.3 (32-36) g/dL RDW Std Deviation 44.3 (36.4-46.3) fL RDW Coeff of Mak 13.3 (11.5-14.5) % Plt Count 313 (130-400) K/uL MPV 8.9 (7.4-10.4) fL Immature Gran % (Auto) 0.8 % Neut % (Auto) 47.2 % Lymph % (Auto) 38.4 % [place] % (Auto) 8.7 % Eos % (Auto) 4.4 % Baso % (Auto) 0.5 % Neut # (Auto) 3.61 (1.4-6.5) K/uL Lymph # (Auto) 2.94 (1.2-3.4) K/uL [place] # (Auto) 0.67 H (0.11-0.59) K/uL Eos # (Auto) 0.34 (0-0.5) K/uL Baso # (Auto) 0.04 (0-0.2) K/uL Immature Gran # (Auto) 0.06 H (0.00-0.02) K/uL Sodium 135 L (136-145) mmol/L Potassium 4.2 (3.5-5.1) mmol/L Chloride 105 (98-107) mmol/L Carbon Dioxide 26 (21-32) mmol/L Anion Gap 4 (3-11) BUN 9 (6-23) mg/dl Creatinine 0.60 (0.6-1.2) mg/dl Est Cr Clr Drug Dosing 116.5 ml/min Est GFR ( Amer) 134.0 ml/min Est GFR (Non-Af Amer) 115.6 ml/min BUN/Creatinine Ratio 15.0 (10-20) Glucose 91 (70-99(Fasting)) mg/dl Calcium 8.6 (8.5-10.1) mg/dl Magnesium 1.8 (1.7-2.4) mg/dl Troponin I High Sens < 2.3 (0-14) pg/ml 03/11/22 03/11/22 03/11/22 Range/Units 13:52 13:52 10:43 WBC (4.8-10.8) K/uL RBC (4.2-5.4) M/uL Hgb (12.0-16.0) g/dL Hct (37-47) % MCV (80-100) fL MCH (25-34) pg MCHC (32-36) g/dL RDW Std Deviation (36.4-46.3) fL RDW Coeff of Mak (11.5-14.5) % Plt Count (130-400) K/uL MPV (7.4-10.4) fL Immature Gran % (Auto) % Neut % (Auto) % Lymph % (Auto) % [place] % (Auto) % Eos % (Auto) % Baso % (Auto) % Neut # (Auto) (1.4-6.5) K/uL Lymph # (Auto) (1.2-3.4) K/uL [place] # (Auto) (0.11-0.59) K/uL Eos # (Auto) (0-0.5) K/uL Baso # (Auto) (0-0.2) K/uL Immature Gran # (Auto) (0.00-0.02) K/uL Sodium (136-145) mmol/L Potassium 4.3 3.9 (3.5-5.1) mmol/L Chloride (98-107) mmol/L Carbon Dioxide (21-32) mmol/L Anion Gap (3-11) BUN (6-23) mg/dl Creatinine (0.6-1.2) mg/dl Est Cr Clr Drug Dosing ml/min Est GFR ( Amer) ml/min Est GFR (Non-Af Amer) ml/min BUN/Creatinine Ratio (10-20) Glucose (70-99(Fasting)) mg/dl Calcium (8.5-10.1) mg/dl Magnesium 2.0 (1.7-2.4) mg/dl Troponin I High Sens 2.5 (0-14) pg/ml 03/11/22 Range/Units 08:24 WBC (4.8-10.8) K/uL RBC (4.2-5.4) M/uL Hgb (12.0-16.0) g/dL Hct (37-47) % MCV (80-100) fL MCH (25-34) pg MCHC (32-36) g/dL RDW Std Deviation (36.4-46.3) fL RDW Coeff of Mak (11.5-14.5) % Plt Count (130-400) K/uL MPV (7.4-10.4) fL Immature Gran % (Auto) % Neut % (Auto) % Lymph % (Auto) % [place] % (Auto) % Eos % (Auto) % Baso % (Auto) % Neut # (Auto) (1.4-6.5) K/uL Lymph # (Auto) (1.2-3.4) K/uL [place] # (Auto) (0.11-0.59) K/uL Eos # (Auto) (0-0.5) K/uL Baso # (Auto) (0-0.2) K/uL Immature Gran # (Auto) (0.00-0.02) K/uL Sodium (136-145) mmol/L Potassium (3.5-5.1) mmol/L Chloride (98-107) mmol/L Carbon Dioxide (21-32) mmol/L Anion Gap (3-11) BUN (6-23) mg/dl Creatinine (0.6-1.2) mg/dl Est Cr Clr Drug Dosing ml/min Est GFR ( Amer) ml/min Est GFR (Non-Af Amer) ml/min BUN/Creatinine Ratio (10-20) Glucose (70-99(Fasting)) mg/dl Calcium (8.5-10.1) mg/dl Magnesium (1.7-2.4) mg/dl Troponin I High Sens 2.5 (0-14) pg/ml Diagnostic Findings Telemetry reviewed: Normal sinus rhythm with heart rates ranging 60-80 bpm Echo report reviewed from 03/11/22: No significant valvular pathology LV is normal in size LV systolic function is normal EF 55-60% RV systolic function is normal LA and RA size are normal. Medications Administered Current Inpatient Medications Acetaminophen (Acetaminophen 325 Mg Tab) 650 mg PO Q4H PRN PRN Reason: Pain or Fever Stop: 04/10/22 07:52 Last Admin: 03/11/22 10:33 Dose: 650 mg Documented by: Enoxaparin Sodium (Enoxaparin Inj 40 Mg/0.4 Ml Syr) 40 mg SQ Q24H [facility] Stop: 04/10/22 08:59 Last Admin: 03/12/22 08:06 Dose: Not Given Documented by: Fluoxetine HCl (Fluoxetine Hcl 20 Mg Cap) 20 mg PO [facility] Stop: 04/10/22 08:59 Last Admin: 03/12/22 08:06 Dose: 20 mg Documented by: Magnesium Oxide (Magnesium Oxide 400 Mg Tab) 400 mg PO [facility] Stop: 04/11/22 08:59 Metoprolol Succinate (Metoprolol Succ 25mg Ext Rel Tab) 12.5 mg PO [facility] Stop: 04/10/22 10:29 Last Admin: 03/12/22 08:06 Dose: 12.5 mg Documented by: Metoprolol Tartrate (Metoprolol Tartrate 1 Mg/Ml Vial) 2.5 mg IV Q6 PRN; Protocol PRN Reason: Tachycardia Stop: 04/10/22 07:52 Nitroglycerin (Nitroglycerin Sl 0.4 Mg/Tab Tab) 0.4 mg SL UD PRN PRN Reason: Chest Pain Stop: 04/10/22 07:52 Ondansetron HCl (Ondansetron Inj 2 Mg/Ml 2 Ml Vial) 4 mg IV Q6H PRN PRN Reason: Nausea Stop: 04/10/22 07:52 Polyethylene Glycol (Polyethylene (Miralax) 17 Gm Pack) 17 gm PO DAILY PRN PRN Reason: Constipation Stop: 04/10/22 07:52 Tamsulosin HCl (Tamsulosin Hcl 0.4 Mg Cap) 0.4 mg PO [facility] Stop: 04/10/22 08:59 Last Admin: 03/12/22 08:06 Dose: 0.4 mg Documented by: Tramadol HCl (Tramadol Hcl 50 Mg Tablet) 50 mg PO TID PRN PRN Reason: Moderate/severe pain Stop: 04/10/22 14:08 Last Admin: 03/11/22 14:20 Dose: 50 mg Documented by:
[2022-03-12] MEDS ORDERED: MAGNESIUM OXIDE 400 MG TAB PO SCH (09:00)
--- NOTE | 2022-03-12 11:23 | Discharge Summary ---
Date of Service March 12, 2022 Admission HPI Per Admitting Provider A 36-year-old female with past medical history significant for uterine leiomyoma, tension headache, migraines, chronic pelvic pain, depression, history of Lyme disease, who presents with palpitations. The patient on last Friday too was in the ER, at that time, she had nausea, vomiting and in the ER her imaging studies of CT of the chest and CT abdomen and pelvis, except for possible uterine fibroid imaging studies were unremarkable. With the fluids she improved and her heart rate was in the 110s and she was sent home, thought to be also anxiety related, but today again when she was in the kitchen, she again noticed palpitations and her Apple watch showed heart rate in 160s, it stayed in 160 for some time. It was not coming down, she also felt some dizziness, which prompted her to come to the ER. In ER consistently staying in 130s to 140s. Electrolytes are okay except for magnesium 1.6. Because of persistent tachycardia, called for admission. The patient denies any chest pain currently. The patient says when her heart rate was in the 160s, she had some chest tightness and some shortness of breath, she says that when her heart rate goes up, she also feels anxious, which is not helping her. She also has some headache episodes, has blurred vision, no earache, no runny nose. She has sore throat few times since last 1 month. No difficulty swallowing. She has ongoing pelvic pain for several weeks, since which is not eating or drinking much, not having much appetite. Today has no nausea, no vomiting, has ongoing chronic pelvic pain. Her bowel movements are alternating sometimes diarrhea, sometimes constipation, no blood in the stools. Normal bladder movements. No hematuria, no swelling in the legs. She has some rash on her neck on and off. She was started on fluoxetine in December of this year and she is supposed to take Flomax for 4 weeks and she is taking since last 3 weeks for kidney stones and she takes [id number] multivitamins. Admission Exam Per Admitting Provider GENERAL: The patient is of moderate build, not in acute distress. VITAL SIGNS: Temperature 36.9, pulse 130, respiratory rate 20, blood pressure 112/80, oxygen 99% on room air. HEENT: Pupils equal, round and reactive to light. Oral mucosa moist. NECK: No JVD. No neck masses. CARDIOVASCULAR: S1 and S2 heard. Tachycardia. No murmurs. RESPIRATORY SYSTEM: Normal AP diameter. No accessory muscle use. No wheezing, no crackles. ABDOMEN: Soft, bowel sounds present. Mild left lower quadrant tenderness. No guarding, no rigidity. CENTRAL NERVOUS SYSTEM: Cranial nerves II-XII grossly intact, nonfocal. EXTREMITIES: No edema, no erythema. Principal Diagnosis Sinus tachycardia Hypomagnesemia Discharge Exam Constitutional + well hydrated; no acute distress Eyes PERRL, conjunctivae normal, anicteric sclerae ENMT external ear and nose normal, oropharynx normal Respiratory normal respiratory effort, lungs clear to auscultation Cardiovascular RRR, no murmur, no edema Gastrointestinal (Abdomen) normal bowel sounds, soft, nontender, no hepatosplenomegaly Musculoskeletal no cyanosis or clubbing, extremities motor strength 5/5 Neurologic PERRL, EOMI, accommodation nl, no face palsy, no dysarthria Psychiatric A+Ox3, euthymic affect Discharge Data Allergies Allergy/AdvReac Type Severity Reaction Status Date / Time NSAIDS (Non-Steroidal AdvReac Intermediate GI ulcer Verified 03/08/22 16:17 Anti-Inflamma Consultations 03/11/22 03:58 ED Decision to Admit Stat 03/11/22 08:00 Consult Cardiology Routine Ordered Studies 03/11/22 05:09 CT head/brain wo con Urgent The paranasal sinuses and mastoid air cells are clear. The calvarium and skull base are intact. The ventricles and sulci are within normal limits. There is no mass, hematoma, midline shift, or acute infarct. Impression: No acute intracranial abnormality Hospital Course (1) Palpitation: (2) Hypomagnesemia: (3) Tachycardia: 36-year-old woman with history of Uterine leiomyoma, tension headache, migraines, chronic pelvic pain, depression, who presented with palpitations Was seen in ER two days before for same problems Evaluation with CTA, abd CT did not show acute abnormalities Patient was noted to be in sinus tachycardia Had hypomagnesemia which was repleted Echocardiogram was grossly unremarkable. Was evaluated by Cardiology and started on metoprolol succinate. Patient needs to follow up with PCP who will arrange zio patch test/holter monitor to rule out arrhythmias Total Time Total Time Spent Total Time Spent (In Minutes): 35 Total Time Includes: Examination of the Patient, Discharge Planning, Medication Reconciliation and Communication With Other Providers Discharge Plan Discharge Items Patient Disposition: Home - Self-Care Reason For Visit: TACHYCARDIA Discharge Diagnosis: Sinus tachycardia Hypomagnesemia Activity: Resume your previous activity Non-emergency contact: Primary Care Provider Call non-emergency contact if: you have any medication questions Follow-up/Referrals: Jesus Zuniga DO [Primary Care Provider] - (Date & Time 03/20/2022 2:20 PM Provider Jesus Zuniga DO [facility] ) Diet: Regular Addtl Attending Provider Instructions: Mrs Valencia. You came to the hospital complaining of palpitations. You were evaluated and found to have rapid heart rate and low magnesium level. You were started on metoprolol with good heart rate control. You are being discharged home. Please ensure follow up with your Primary Doctor who will do a zio patch test or holter monitoring to assess for abnormal heart rhythms. it was a pleasure taking care of you. Pending Studies at Discharge: No Stand-Alone Forms: My [facility], Smoking Cessation Medications and DC Order Prescriptions: New magnesium oxide 400 mg (241.3 mg magnesium) Tablet 400 mg PO QAM Qty: 30 RF: 0 metoprolol succinate 25 mg Tablet Extended Release 24 Hr 12.5 mg PO QAM 30 Days Qty: 15 RF: 0 Continued multivitamin Tablet 1 tab PO QAM RF: 0 fluoxetine 20 mg capsule 20 mg PO QAM RF: 0 ondansetron 4 mg tablet,disintegrating 4 mg PO Q6H PRN (Reason: nausea and vomiting) Qty: 10 RF: 0 tamsulosin 0.4 mg capsule 0.4 mg PO QAM RF: 0 Discharge Orders: Discharge Order (Routine); Ordered 03/12/22 Ordered By: Елена Perez Admission Data Admit Date/Time: 03/11/22 05:09 Attending Provider: Елена Perez I. Admit Provider: Walter Massey Primary Care Provider: Jesus Zuniga Other Providers: Walter Massey ; Michael Subramanian ; Shabbir Bonilla ; Jerry Fajardo ; Kody Castro ; Sigifredo Biswas ; Salomón Mckenzie ; Lia Carmen ; Lilian Crespo ; Zohra Hayes. ; Chele Guo Other Interventions: Discharge Summary Assessment (RN) Last Done: 03/12/22 11:47
--- NOTE | 2022-03-12 14:20 | Electrocardiogram Report ---
Test Reason : Blood Pressure : / mmHG Vent. Rate : 074 BPM Atrial Rate : 074 BPM P-R Int : 168 ms QRS Dur : 084 ms QT Int : 406 ms P-R-T Axes : 042 050 042 degrees QTc Int : 450 ms Poor data quality, interpretation may be adversely affected Normal sinus rhythm When compared with ECG of 11-MAR-2022 01:44, Vent. rate has decreased BY 58 BPM Confirmed by Chad Del Castillo ([id number]) on 03/12/2022 2:20:26 PM Referred By: REFERRED SELF Confirmed By:Paulino Del Castillo
== END 2022-03-12 12:40 | disposition home or self-care (01) | DRG 641 ==
LOC: ED 01:27 → 2S 05:09

== ENCOUNTER 2022-05-30 14:03 | Inpatient (IN) ==
[~2022-05-30 14:03] MED LIST: DEXTROSE 5% IV ONE; PROCAINAMIDE IV ONE
[2022-05-30] MEDS ORDERED: ADENOSINE IV SOLN 3 MG/ML 2 ML VIAL IV ONE (14:21)
[2022-05-30] MEDS ORDERED: ASPIRIN CHEW 324 MG PO STA (14:23)
[2022-05-30] MEDS ORDERED: ADENOSINE IV SOLN 3 MG/ML 2 ML VIAL IV STA ×2 (14:24→14:29)
[2022-05-30] MEDS ORDERED: LORazepam 2 MG/1 ML VIAL IV STA ×2 (14:29→14:36)
[2022-05-30] MEDS ORDERED: fentaNYL citrate 100 MCG/2 ML VIAL IV STA (14:43)
[2022-05-30] MEDS ORDERED: fentaNYL citrate 100 MCG/2 ML VIAL ONE (14:45)
[2022-05-30 14:46] LABS: iSTAT Creatinine 0.6 mg/dl (0.6-1.3); iSTAT Ionized Calcium 1.28 mmol/l (1.12-1.32); iSTAT Potassium 3.8 mmol/L (3.3-5.0)
[2022-05-30] MEDS ORDERED: METOPROLOL TARTRATE 1 MG/ML VIAL IV ONE (14:51)
[2022-05-30] MEDS ORDERED: METOPROLOL TARTRATE 1 MG/ML VIAL IV STA ×2 (14:51→15:59)
[2022-05-30 14:57] LABS: Partial Thromboplastin Time 26.5 Seconds (21.0-31.0); Prothrombin Time 10.4 Seconds (9.0-12.0)
[2022-05-30 15:05] LABS: D Dimer 900 ug/L FEU (0-500)
[2022-05-30 15:06] LABS: Basophils # (auto) 0.11 K/uL (0-0.2); Eosinophils % (auto) 2.6 %; Hematocrit (blood only) 44.6 % (34.1-44.9); Hemoglobin 14.6 g/dl (12.0-16.0); Immature Granulocytes # (auto) 0.17 K/uL (0.00-0.02); Immature Granulocytes % (auto) 1.5 %; Lymphocytes # (auto) 3.82 K/uL (1.2-3.4); Lymphocytes % (auto) 33.3 %; Mean Corpuscular Hemoglobin 30.2 pg (25.0-34.0); Mean Corpuscular Hgb Conc 32.7 g/dL (32.0-36.0); Mean Corpuscular Volume 92.3 fL (80.0-100.0); Mean Platelet Volume 9.1 fL (9.4-12.3); Monocytes # (auto) 1.02 K/uL (0.24-0.82); Monocytes % (auto) 8.9 %; Neutrophils # (auto) 6.06 K/uL (1.4-6.5); Neutrophils % (auto) 52.7 %; Platelet Count 454 K/uL (130-400); RDW Coefficient of Variation 13.5 % (11.5-14.5); RDW Standard Deviation 46.4 fL (36.4-46.3); Red Blood Count 4.83 M/uL (3.93-5.22); White Blood Count 11.48 K/ul (4.8-10.8)
[2022-05-30 15:14] LABS: BUN Creatinine Ratio 16.2 (10-20); Calcium 9.8 mg/dl (8.5-10.1); Creatinine Clr Calc Pharmacy 100.2 ml/min; Est GFR (African American) 127.7 ml/min; Est GFR (Non-African American) 110.2 ml/min; Magnesium 1.7 mg/dl (1.7-2.4); Potassium 3.7 mmol/L (3.5-5.1)
[2022-05-30 15:17] LABS: Troponin I High Sensitivity 2.5 pg/ml (0-14)
--- NOTE | 2022-05-30 15:28 | XRay Report ---
SINGLE VIEW CHEST CLINICAL HISTORY: Atypical chest pain. Tachycardia. FINDINGS: An AP, portable, upright chest radiograph is compared to chest x-ray and chest CT dated 02/22. The cardiomediastinal silhouette is unremarkable. The lungs and pleural spaces are clear. No pneumothorax is seen. The bony thorax is grossly intact. IMPRESSION: No active disease in the chest. ACT 112: Negative or not required by law. Electronically signed by: Haroon Conley M.D. 05/30/2022 3:26 PM
--- NOTE | 2022-05-30 15:33 | Emergency Department Note ---
History of Present Illness General Chief Complaint: Arrhythmia/Palpitations Stated Complaint: ABNORMAL HEART PALPITATIONS Time Seen by Provider: 05/30/22 14:17 History of Present Illness Provider Complaint: + rapid heart beat and + palpitations Onset (ago): 30 minute(s) Duration: + Constant Maximum Pain Intensity: 6 Current Pain Intensity: 0 Context: + occurred during rest Arrhythmia history: no on anti-coagulants Associated symptoms: + near-syncope and + anxiety; no chest pain, no shortness of breath, no syncope, no nausea, no vomiting or no cough HPI narrative: Patient had recent pelvic procedure done 2 weeks ago not under general anesthesia Home Medications Medication Instructions Recorded Confirmed Type multivitamin 1 tab PO QAM 02/21/22 05/30/22 History ondansetron 4 mg disintegrating 4 mg PO Q6H PRN #10 tab 02/21/22 05/30/22 Rx tablet magnesium oxide 400 mg (241.3 mg 400 mg PO QAM #30 tab 03/12/22 05/30/22 Rx magnesium) tablet hydrocortisone 2.5 % topical cream 1 applic TOPICAL BID PRN 05/30/22 05/30/22 History metoprolol succinate 25 mg 12.5 mg PO QAM 05/30/22 05/30/22 History tablet,extended release 24 hr rimegepant 75 mg disintegrating 75 mg PO DAILY PRN 05/30/22 05/30/22 History tablet (Nurtec ODT) sertraline 50 mg tablet 100 mg PO QAM 05/30/22 05/30/22 History Allergies Allergy/AdvReac Type Severity Reaction Status Date / Time NSAIDS (Non-Steroidal AdvReac Intermediate GI ulcer Verified 05/30/22 15:44 Anti-Inflamma Past Med/Surg History Medical History (Updated 05/30/22 @ 18:26 by Tin Ivey) Anxiety Depression History of umbilical hernia Hx of Lyme disease Kidney stones Menometrorrhagia Ovarian cyst Pelvic congestion syndrome s/p Pelvic vein embolization Uterine leiomyoma Surgical History (Updated 05/30/22 @ 17:24 by Bre Louise PA-C) History of abdominoplasty History of History of hysteroscopy Family History (Updated 05/30/22 @ 15:58 by Bre Louise PA-C) Uncle , 50s Myocardial infarction 50s Mother Cancer cervical Other Diabetes Social History Smoking Status: Never smoker Hx Alcohol Use: Yes Alcohol type: hard liquor Hx Substance Use: No Preferred Language: Tongan Communication Ability: Effective Corporate Coordinator Required: No Beliefs That Will Affect Care: None marital status: Single Current Living Situation: Family and Significant Other current occupational status: employed Feels Safe at Home: Yes Assistive Devices: None Review of Systems A total of 10 systems reviewed and were otherwise negative Physical Exam Vital Signs: Vital Signs - 24 hr 05/30/22 14:12 05/30/22 14:25 05/30/22 14:30 Temperature 37.0 C Temperature Source Temporal Artery Sc an Pulse Rate 222 H 225 H 210 H Pulse Rate [Apical ] Pulse Rate from Sp O2 Sensor 209 H Pulse Rhythm [Apic al] Pulse Strength [Ap ical] Respiratory Rate 18 21 13 Respiratory Effort / Characteristics Non-Labored Sponta neous Respiratory Depth Normal Respiratory Patter n Regular Blood Pressure 127/89 Blood Pressure [Le ft Arm] Blood Pressure [place] n 101 Blood Pressure [place] n [Left Arm] Blood Pressure Pos ition Sitting Blood Pressure Pos ition [Left Arm] Pulse Oximetry 100 99 Oxygen Delivery Me thod Room Air Oxygen Flow Rate Sepsis Recent Feve r Within 48 Hours No Sepsis New/Unexpla ined Change in Men rosibel Status No Sepsis Action Take n by Nursing No Action Required 05/30/22 14:40 05/30/22 14:43 05/30/22 14:50 Temperature Temperature Source Pulse Rate 196 H 164 H 205 H Pulse Rate [Apical ] Pulse Rate from Sp O2 Sensor 181 H 205 H Pulse Rhythm [Apic al] Pulse Strength [Ap ical] Respiratory Rate 24 20 Respiratory Effort / Characteristics Respiratory Depth Respiratory Patter n Blood Pressure 148/97 H Blood Pressure [Le ft Arm] Blood Pressure [place] n Blood Pressure [place] n [Left Arm] Blood Pressure Pos ition Blood Pressure Pos ition [Left Arm] Pulse Oximetry 97 99 Oxygen Delivery Me thod Oxygen Flow Rate Sepsis Recent Feve r Within 48 Hours Sepsis New/Unexpla ined Change in Men rosibel Status Sepsis Action Take n by Nursing 05/30/22 14:58 05/30/22 15:00 05/30/22 15:02 Temperature Temperature Source Pulse Rate 165 H 159 H 161 H Pulse Rate [Apical ] Pulse Rate from Sp O2 Sensor 159 H 160 H Pulse Rhythm [Apic al] Pulse Strength [Ap ical] Respiratory Rate 16 15 Respiratory Effort / Characteristics Respiratory Depth Respiratory Patter n Blood Pressure 146/108 H 123/104 H Blood Pressure [Le ft Arm] Blood Pressure [place] n 110 Blood Pressure [place] n [Left Arm] Blood Pressure Pos ition Blood Pressure Pos ition [Left Arm] Pulse Oximetry 98 98 Oxygen Delivery Me thod Oxygen Flow Rate Sepsis Recent Feve r Within 48 Hours Sepsis New/Unexpla ined Change in Men rosibel Status Sepsis Action Take n by Nursing 05/30/22 15:10 05/30/22 15:15 05/30/22 15:20 Temperature Temperature Source Pulse Rate 160 H 160 H 159 H Pulse Rate [Apical ] Pulse Rate from Sp O2 Sensor 160 H 160 H 160 H Pulse Rhythm [Apic al] Pulse Strength [Ap ical] Respiratory Rate 18 16 15 Respiratory Effort / Characteristics Respiratory Depth Respiratory Patter n Blood Pressure 119/99 Blood Pressure [Le ft Arm] Blood Pressure [place] n 105 Blood Pressure [place] n [Left Arm] Blood Pressure Pos ition Blood Pressure Pos ition [Left Arm] Pulse Oximetry 99 98 98 Oxygen Delivery Me thod Oxygen Flow Rate Sepsis Recent Feve r Within 48 Hours Sepsis New/Unexpla ined Change in Men rosibel Status Sepsis Action Take n by Nursing 05/30/22 15:30 05/30/22 15:37 05/30/22 15:40 Temperature Temperature Source Pulse Rate 162 H 159 H Pulse Rate [Apical ] Pulse Rate from Sp O2 Sensor 162 H 160 H Pulse Rhythm [Apic al] Pulse Strength [Ap ical] Respiratory Rate 16 17 Respiratory Effort / Characteristics Respiratory Depth Respiratory Patter n Blood Pressure 114/91 Blood Pressure [Le ft Arm] Blood Pressure [place] n 98 Blood Pressure [place] n [Left Arm] Blood Pressure Pos ition Blood Pressure Pos ition [Left Arm] Pulse Oximetry 100 99 Oxygen Delivery Me thod Nasal Cannula Nasal Cannula Oxygen Flow Rate 2 2 Sepsis Recent Feve r Within 48 Hours Sepsis New/Unexpla ined Change in Men rosibel Status Sepsis Action Take n by Nursing 05/30/22 15:50 05/30/22 15:55 05/30/22 15:58 Temperature Temperature Source Pulse Rate 162 H 163 H 108 H Pulse Rate [Apical ] Pulse Rate from Sp O2 Sensor 163 H 163 H 108 H Pulse Rhythm [Apic al] Pulse Strength [Ap ical] Respiratory Rate 16 22 23 Respiratory Effort / Characteristics Respiratory Depth Respiratory Patter n Blood Pressure 117/87 108/89 125/88 Blood Pressure [Le ft Arm] Blood Pressure [place] n 97 95 100 Blood Pressure [place] n [Left Arm] Blood Pressure Pos ition Blood Pressure Pos ition [Left Arm] Pulse Oximetry 99 99 97 Oxygen Delivery Me thod Nasal Cannula Nasal Cannula Nasal Cannula Oxygen Flow Rate 2 2 2 Sepsis Recent Feve r Within 48 Hours Sepsis New/Unexpla ined Change in Men rosibel Status Sepsis Action Take n by Nursing 05/30/22 16:00 05/30/22 16:01 05/30/22 16:05 Temperature Temperature Source Pulse Rate 105 H 103 H 98 H Pulse Rate [Apical ] Pulse Rate from Sp O2 Sensor 105 H 99 H Pulse Rhythm [Apic al] Pulse Strength [Ap ical] Respiratory Rate 19 21 Respiratory Effort / Characteristics Respiratory Depth Respiratory Patter n Blood Pressure 121/85 121/85 105/76 Blood Pressure [Le ft Arm] Blood Pressure [place] n 97 85 Blood Pressure [place] n [Left Arm] Blood Pressure Pos ition Blood Pressure Pos ition [Left Arm] Pulse Oximetry 99 98 Oxygen Delivery Me thod Nasal Cannula Nasal Cannula Oxygen Flow Rate 2 2 Sepsis Recent Feve r Within 48 Hours Sepsis New/Unexpla ined Change in Men rosibel Status Sepsis Action Take n by Nursing 05/30/22 16:25 05/30/22 16:28 05/30/22 16:30 Temperature Temperature Source Pulse Rate 101 H 100 H Pulse Rate [Apical ] Pulse Rate from Sp O2 Sensor 102 H 101 H 99 H Pulse Rhythm [Apic al] Pulse Strength [Ap ical] Respiratory Rate 19 18 Respiratory Effort / Characteristics Respiratory Depth Respiratory Patter n Blood Pressure 110/79 110/72 Blood Pressure [Le ft Arm] Blood Pressure [place] n 89 84 Blood Pressure [place] n [Left Arm] Blood Pressure Pos ition Blood Pressure Pos ition [Left Arm] Pulse Oximetry 100 100 99 Oxygen Delivery Me thod Nasal Cannula Nasal Cannula Nasal Cannula Oxygen Flow Rate 2 2 2 Sepsis Recent Feve r Within 48 Hours Sepsis New/Unexpla ined Change in Men rosibel Status Sepsis Action Take n by Nursing 05/30/22 16:40 05/30/22 16:50 05/30/22 17:00 Temperature Temperature Source Pulse Rate 103 H 103 H 98 H Pulse Rate [Apical ] Pulse Rate from Sp O2 Sensor 102 H 102 H 98 H Pulse Rhythm [Apic al] Pulse Strength [Ap ical] Respiratory Rate 23 19 17 Respiratory Effort / Characteristics Respiratory Depth Respiratory Patter n Blood Pressure 117/98 120/91 Blood Pressure [Le ft Arm] Blood Pressure [place] n 104 100 Blood Pressure [place] n [Left Arm] Blood Pressure Pos ition Blood Pressure Pos ition [Left Arm] Pulse Oximetry 100 100 100 Oxygen Delivery Me thod Nasal Cannula Nasal Cannula Nasal Cannula Oxygen Flow Rate 2 2 2 Sepsis Recent Feve r Within 48 Hours Sepsis New/Unexpla ined Change in Men rosibel Status Sepsis Action Take n by Nursing 05/30/22 17:04 05/30/22 17:10 05/30/22 17:20 Temperature Temperature Source Pulse Rate 96 H 96 H 96 H Pulse Rate [Apical ] Pulse Rate from Sp O2 Sensor 96 H 95 H 96 H Pulse Rhythm [Apic al] Pulse Strength [Ap ical] Respiratory Rate 22 23 23 Respiratory Effort / Characteristics Respiratory Depth Respiratory Patter n Blood Pressure 115/85 115/84 115/75 Blood Pressure [Le ft Arm] Blood Pressure [place] n 95 94 88 Blood Pressure [place] n [Left Arm] Blood Pressure Pos ition Blood Pressure Pos ition [Left Arm] Pulse Oximetry 100 94 100 Oxygen Delivery Me thod Nasal Cannula Nasal Cannula Nasal Cannula Oxygen Flow Rate 2 2 2 Sepsis Recent Feve r Within 48 Hours Sepsis New/Unexpla ined Change in Men rosibel Status Sepsis Action Take n by Nursing 05/30/22 17:30 05/30/22 17:40 05/30/22 17:50 Temperature Temperature Source Pulse Rate 92 H 90 87 Pulse Rate [Apical ] Pulse Rate from Sp O2 Sensor 88 88 87 Pulse Rhythm [Apic al] Pulse Strength [Ap ical] Respiratory Rate 19 23 22 Respiratory Effort / Characteristics Respiratory Depth Respiratory Patter n Blood Pressure 115/81 114/78 113/77 Blood Pressure [Le ft Arm] Blood Pressure [place] n 92 90 89 Blood Pressure [place] n [Left Arm] Blood Pressure Pos ition Blood Pressure Pos ition [Left Arm] Pulse Oximetry 100 100 100 Oxygen Delivery Me thod Nasal Cannula Nasal Cannula Nasal Cannula Oxygen Flow Rate 2 2 2 Sepsis Recent Feve r Within 48 Hours Sepsis New/Unexpla ined Change in Men rosibel Status Sepsis Action Take n by Nursing 05/30/22 17:57 05/30/22 18:00 05/30/22 18:10 Temperature Temperature Source Pulse Rate 89 93 H Pulse Rate [Apical ] 88 Pulse Rate from Sp O2 Sensor 95 H Pulse Rhythm [Apic al] Regular Pulse Strength [Ap ical] Normal Respiratory Rate 18 21 23 Respiratory Effort / Characteristics Non-Labored Respiratory Depth Normal Respiratory Patter n Regular Blood Pressure 109/77 115/85 Blood Pressure [Le ft Arm] 113/77 Blood Pressure [place] n 87 95 Blood Pressure [place] n [Left Arm] 89 Blood Pressure Pos ition Blood Pressure Pos ition [Left Arm] Lying Pulse Oximetry 100 99 Oxygen Delivery Me thod Nasal Cannula Nasal Cannula Nasal Cannula Oxygen Flow Rate 2 2 2 Sepsis Recent Feve r Within 48 Hours Sepsis New/Unexpla ined Change in Men rosibel Status Sepsis Action Take n by Nursing 05/30/22 18:14 Temperature Temperature Source Pulse Rate Pulse Rate [Apical ] Pulse Rate from Sp O2 Sensor Pulse Rhythm [Apic al] Pulse Strength [Ap ical] Respiratory Rate Respiratory Effort / Characteristics Respiratory Depth Respiratory Patter n Blood Pressure Blood Pressure [Le ft Arm] Blood Pressure [place] n Blood Pressure [place] n [Left Arm] Blood Pressure Pos ition Blood Pressure Pos ition [Left Arm] Pulse Oximetry Oxygen Delivery Me thod Nasal Cannula Oxygen Flow Rate 2 Sepsis Recent Feve r Within 48 Hours Sepsis New/Unexpla ined Change in Men rosibel Status Sepsis Action Take n by Nursing Physical Exam: Physical Exam HENT: Exam performed. -Head: Normocephalic and atraumatic. -Right Ear: External ear normal. No mastoid tenderness. -Left Ear: External ear normal. No mastoid tenderness. -Mouth/Throat: The oropharynx is clear and moist. No trismus in the jaw. No dental abscesses or uvula swelling. No oropharyngeal exudate or tonsillar abscesses. EYES: Conjunctivae and EOM are normal. Pupils are equal, round, and reactive to light. Right eye exhibits no discharge. Left eye exhibits no discharge. No scleral icterus. NECK: Normal range of motion. Neck supple. No JVD present. No spinous process tenderness present. No carotid bruit present. No rigidity. No tracheal deviation and normal range of motion present. No Brudzinski's sign and no Kernig's sign noted. CV: Tachycardic rate, regular rhythm, normal heart sounds and intact distal pulses. There is no peripheral edema. Palpable radial pulses bue. PULM/CHEST: Effort normal and breath sounds normal. No respiratory distress. No stridor. She has no wheezes. She has no rales. -Chest Wall: She exhibits no tenderness. ABD: The abdomen is soft. Bowel sounds are normal. She has no distension. No mass is present. There is no tenderness. There is no rebound, no guarding, no Rico's sign and no tenderness at McBurney's point. Rovsig negative MUSC/SKEL: Normal range of motion. There is no peripheral edema, tenderness or deformity. LYMPH: No cervical adenopathy. NEURO: She is alert and oriented to person, place, and time. She has normal strength. No cranial nerve deficit or sensory deficit. Coordination and gait normal. GCS eye subscore is 4. GCS verbal subscore is 5. GCS motor subscore is 6. Cerebellar tests wnl. SKIN: Skin is warm and dry. She is not diaphoretic. PSYCH: She has a normal mood and affect. Behavior is normal. Judgment and thought content normal. Procedures Free Text Procedures Indication: SVT Verbal consent was obtained after the risks and benefits were explained, including but not limited to pain, thermal burn, infection, hypotension, and cardiorespiratory arrest. At this time, the risks of the procedure are less than the risks of NOT performing the procedure. A time out was taken and the correct patient and procedure identified. The patient was on 100% via NRB and end tidal CO2 monitoring prior to the procedure. Suction, airway equipment, medications, respiratory equipment, ACLS cart, and appropriate personnel were prepared prior to the initiation of the procedure. The biphasic defibrillator was set to 50 joules of energy and synched. After confirmation of sedation and "all clear" safety check the synchronized shock was delivered. This resulted in unsuccessful conversion of the dysrhythmia. Patient was given fentanyl and Valium. The biphasic defibrillator was set to 100 joules of energy and synched. After confirmation of sedation and "all clear" safety check the synchronized shock was delivered. This resulted in unsuccessful conversion of the dysrhythmia patient remained in SVT. See nursing notes for dosages and times. Course Course 1417: The patient was evaluated in room A1. A complete history and physical exam was performed Cardiac monitoring: An order was placed for continuous cardiac monitoring. The monitor shows a rate of 230 with SVT rhythm Large-bore IV access was obtained and the patient was placed on cardiac monitor technician. Adenosine 6 mg IV push was ordered for the patient but did not improve the patient's heart rate and the patient remained in SVT. IV fluids were started. Pads were placed on the patient. We reattempted adenosine push with 12 mg IV push but that again did not break the patient's SVT and the patient remained in SVT with heart rate in the 230s. Patient denies any chest pain difficulty breathing. We then attempted cardioversion at 50 J after given the patient Ati van. Patient was cardioverted with 50 J and the patient did not have any relief and was still in SVT with a rate in the 200s. He reattempted to cardiovert the patient at 100 J after receiving fentanyl and Valium however at this also was unsuccessful and the patient remained in SVT. Patient adamantly denies any cocaine usage or illicit substance usage. Metoprolol 5 mg was ordered for the patient and cardiology Dr. Dumas was consulted. 1517: Patient's heart rate improved to 160 still in SVT after receiving metoprolol 5 mg IV push. Second dose of metoprolol 5 mg IV push was ordered for the patient however the patient remained ventricular rate in the 160s. Dr. Dumas at bedside. 1548: There was discussion with Dr. Dumas about doing a procedural sedation on the patient and cardioverting her at a higher joules between 150-200 J however the patient's symptoms started while she was eating and therefore it was thought to be a contraindication to sedate the patient with propofol given she had just eaten. Dr. Dumas recommends starting procainamide infusion. Given that we plan on starting the patient on procainamide it was thought that the patient would be best served on a monitored bed in the ICU. Dr. Sutherland notified. Spoke with [facility] hospitalist team Bre Fitch stated to admit to Dr. Fried 1613: Vital signs stable. Prior to beginning the procainamide infusion the patient converted into a sinus rhythm on her own. Dr. Dumas recommended an additional 5 mg of Toprol IV push. Repeat EKG confirms sinus rhythm. Patient sent for CT of the chest rule out PE. Labs show an elevated D-dimer of 900 otherwise unremarkable with a negative troponin. 1656: Vital signs stable. Patient remains in sinus rhythm on the cardiac monitor technician. Patient CTA of the chest does show bilateral segmental pulmonary emboli within the bilateral lobes. Patient will be started on heparin. Patient being evaluated by hospitalist team Dr. Fried Administered Medications Heparin Sodium/Dextrose (Heparin Sodium/Dextrose) 25,000 units in 500 mls @ 20 mls/hr IV .Q24H ANGUS; Protocol Stop: 06/29/22 16:59 Last Admin: 05/30/22 17:18 Dose: 1,000 units/hr, 20 mls/hr Documented by: [id number] Cosigned by: [id number] Discontinued Medications Hydrocodone Bitart/Acetaminophen (Hydrocodone/Acetamophen 5/325mg Tab) 1 tab PO NOW STA Stop: 05/30/22 17:00 Last Admin: 05/30/22 17:12 Dose: 1 tab Documented by: [id number] Adenosine (Adenosine Iv Soln 3 Mg/Ml 2 Ml Vial) Confirm Administered Dose 6 mg IV .STK-MED ONE Stop: 05/30/22 14:22 Last Admin: 05/30/22 15:40 Dose: Not Given Documented by: [id number] Adenosine (Adenosine Iv Soln 3 Mg/Ml 2 Ml Vial) 6 mg IV NOW STA Stop: 05/30/22 14:25 Last Admin: 05/30/22 14:20 Dose: 6 mg Documented by: [id number] Adenosine (Adenosine Iv Soln 3 Mg/Ml 2 Ml Vial) 12 mg IV NOW STA Stop: 05/30/22 14:30 Last Admin: 05/30/22 14:34 Dose: 12 mg Documented by: [id number] Aspirin (Aspirin Chew 324 Mg) 324 mg PO NOW STA Stop: 05/30/22 14:24 Last Admin: 05/30/22 17:12 Dose: 324 mg Documented by: [id number] Aspirin (Aspirin Chew 324 Mg) Confirm Administered Dose 324 mg .ROUTE .STK-MED ONE Stop: 05/30/22 17:10 Last Admin: 05/30/22 17:28 Dose: Not Given Documented by: [id number] Diazepam (Diazepam 5 Mg/Ml Inj 10ml Vial) 5 mg IV NOW STA Stop: 05/30/22 14:44 Last Admin: 05/30/22 14:47 Dose: 5 mg Documented by: [id number] Fentanyl Citrate (Fentanyl Citrate 100 Mcg/2 Ml Vial) 50 mcg IV NOW STA Stop: 05/30/22 14:44 Last Admin: 05/30/22 14:53 Dose: 50 mcg Documented by: [id number] Fentanyl Citrate (Fentanyl Citrate 100 Mcg/2 Ml Vial) Confirm Administered Dose 100 mcg .ROUTE .STK-MED ONE Stop: 05/30/22 14:46 Last Admin: 05/30/22 15:41 Dose: Not Given Documented by: [id number] Heparin Sodium (Porcine) (Heparin Sod (Porcine) 1000 Unit/Ml) 1 units IV NOW O NE Stop: 05/30/22 16:57 Last Admin: 05/30/22 17:18 Dose: 5,000 units Documented by: [id number] Cosigned by: [id number] Heparin Sodium/Dextrose (Heparin Iv Adult Wt-Based Standard With Bolus Protocol) 1 ea IV NOW STA; Protocol Stop: 05/30/22 16:42 Last Admin: 05/30/22 17:29 Dose: Not Given Documented by: [id number] Procainamide HCl 1,000 mg/ (Dextrose) 102 mls @ 2 mls/min IV TODAY@1345 ONE; Protocol Stop: 05/31/22 14:35 Last Infusion: 05/30/22 15:55 Dose: 0 mls/min Documented by: [id number] Admin: 05/30/22 15:48 Dose: 2 mls/min Documented by: [id number] Ioversol (Optiray 320 125ml) 117 ml IV ONCE ONE Stop: 05/30/22 16:20 Last Admin: 05/30/22 16:20 Dose: 117 ml Documented by: [id number] Lorazepam (Lorazepam 2 Mg/1 Ml Vial) 1 mg IV NOW STA; Protocol Stop: 05/30/22 14:30 Last Admin: 05/30/22 14:40 Dose: 2 mg Documented by: [id number] Lorazepam (Lorazepam 2 Mg/1 Ml Vial) 1 mg IV NOW STA; Protocol Stop: 05/30/22 14:37 Last Admin: 05/30/22 15:46 Dose: Not Given Documented by: [id number] Metoprolol Tartrate (Metoprolol Tartrate 1 Mg/Ml Vial) Confirm Administered Dose 5 mg IV .STK-MED ONE Stop: 05/30/22 14:52 Last Admin: 05/30/22 14:58 Dose: 5 mg Documented by: [id number] Metoprolol Tartrate (Metoprolol Tartrate 1 Mg/Ml Vial) 5 mg IV NOW STA Stop: 05/30/22 14:52 Last Admin: 05/30/22 14:43 Dose: 5 mg Documented by: [id number] Metoprolol Tartrate (Metoprolol Tartrate 1 Mg/Ml Vial) 5 mg IV NOW STA Stop: 05/30/22 16:00 Last Admin: 05/30/22 16:01 Dose: 5 mg Documented by: [id number] Metoprolol Tartrate (Metoprolol Tartrate 25 Mg Tab) 25 mg PO QAM STA Stop: 05/30/22 16:35 Last Admin: 05/30/22 18:07 Dose: Not Given Documented by: [id number] Metoprolol Tartrate (Metoprolol Tartrate 25 Mg Tab) 25 mg PO NOW STA Stop: 05/30/22 17:53 Last Admin: 05/30/22 18:05 Dose: 25 mg Documented by: [id number] Potassium Chloride (Potassium Chloride Crtab 20 Meq Tabcr) 40 meq PO NOW STA Stop: 05/30/22 16:20 Last Admin: 05/30/22 17:12 Dose: 40 meq Documented by: [id number] Medical Decision Making Laboratory Data Result diagrams: 05/30/22 14:20 05/30/22 14:20 Lab Results 05/30/22 05/30/22 05/30/22 Range/Units 14:20 14:20 14:20 WBC 11.48 H (4.8-10.8) K/ul RBC 4.83 (3.93-5.22) M/uL Hgb 14.6 (12.0-16.0) g/dl POC Hgb (12.0-16.0) g/dl Hct 44.6 (34.1-44.9) % POC Hct (37-47) % MCV 92.3 (80.0-100.0) fL MCH 30.2 (25.0-34.0) pg MCHC 32.7 (32.0-36.0) g/dL RDW Std Deviation 46.4 H (36.4-46.3) fL RDW Coeff of Mak 13.5 (11.5-14.5) % Plt Count 454 H (130-400) K/uL MPV 9.1 L (9.4-12.3) fL Immature Gran % (Auto) 1.5 % Neut % (Auto) 52.7 % Lymph % (Auto) 33.3 % Wharton % (Auto) 8.9 % Eos % (Auto) 2.6 % Baso % (Auto) 1.0 % Neut # (Auto) 6.06 (1.4-6.5) K/uL Lymph # (Auto) 3.82 H (1.2-3.4) K/uL Wharton # (Auto) 1.02 H (0.24-0.82) K/uL Eos # (Auto) 0.30 (0-0.50) K/uL Baso # (Auto) 0.11 (0-0.2) K/uL Immature Gran # (Auto) 0.17 H (0.00-0.02) K/uL PT 10.4 (9.0-12.0) Seconds INR 1.0 (0.9-1.1) APTT 26.5 (21.0-31.0) Seconds PTT Ratio 1.0 D-Dimer 900 H* (0-500) ug/L FEU POC Sodium (135-144) mmol/L Sodium 138 (136-145) mmol/L POC Potassium (3.3-5.0) mmol/L Potassium 3.7 (3.5-5.1) mmol/L POC Chloride (101-112) mmol/L Chloride 103 (98-107) mmol/L Carbon Dioxide 25 (21-32) mmol/L POC Total CO2 (24-31) mmol/L Anion Gap 10 (3-11) POC Anion Gap (16-25) mmol/L POC BUN (7-18) mg/dl BUN 11 (6-23) mg/dl Creatinine 0.68 (0.6-1.2) mg/dl POC Creatinine (0.6-1.3) mg/dl Est Cr Clr Drug Dosing 100.2 ml/min Est GFR ( Amer) 127.7 ml/min Est GFR (Non-Af Amer) 110.2 ml/min BUN/Creatinine Ratio 16.2 (10-20) Glucose 124 H (70-99(Fasting)) mg/dl POC Glucose (other) (70-99) mg/dl Calcium 9.8 (8.5-10.1) mg/dl POC Ioniz Calcium Reed (1.12-1.32) mmol/l Magnesium 1.7 (1.7-2.4) mg/dl Troponin I High Sens 2.5 (0-14) pg/ml Lipase 23 (11-82) U/L SARS-CoV-2, RNA, NAAT (NEGATIVE) 05/30/22 05/30/22 Range/Units 14:34 16:03 WBC (4.8-10.8) K/ul RBC (3.93-5.22) M/uL Hgb (12.0-16.0) g/dl POC Hgb 16.0 (12.0-16.0) g/dl Hct (34.1-44.9) % POC Hct 47 (37-47) % MCV (80.0-100.0) fL MCH (25.0-34.0) pg MCHC (32.0-36.0) g/dL RDW Std Deviation (36.4-46.3) fL RDW Coeff of Mak (11.5-14.5) % Plt Count (130-400) K/uL MPV (9.4-12.3) fL Immature Gran % (Auto) % Neut % (Auto) % Lymph % (Auto) % Wharton % (Auto) % Eos % (Auto) % Baso % (Auto) % Neut # (Auto) (1.4-6.5) K/uL Lymph # (Auto) (1.2-3.4) K/uL Wharton # (Auto) (0.24-0.82) K/uL Eos # (Auto) (0-0.50) K/uL Baso # (Auto) (0-0.2) K/uL Immature Gran # (Auto) (0.00-0.02) K/uL PT (9.0-12.0) Seconds INR (0.9-1.1) APTT (21.0-31.0) Seconds PTT Ratio D-Dimer (0-500) ug/L FEU POC Sodium 139 (135-144) mmol/L Sodium (136-145) mmol/L POC Potassium 3.8 (3.3-5.0) mmol/L Potassium (3.5-5.1) mmol/L POC Chloride 104 (101-112) mmol/L Chloride (98-107) mmol/L Carbon Dioxide (21-32) mmol/L POC Total CO2 25 (24-31) mmol/L Anion Gap (3-11) POC Anion Gap 15.0 L (16-25) mmol/L POC BUN 10 (7-18) mg/dl BUN (6-23) mg/dl Creatinine (0.6-1.2) mg/dl POC Creatinine 0.6 (0.6-1.3) mg/dl Est Cr Clr Drug Dosing ml/min Est GFR ( Amer) ml/min Est GFR (Non-Af Amer) ml/min BUN/Creatinine Ratio (10-20) Glucose (70-99(Fasting)) mg/dl POC Glucose (other) 128 H (70-99) mg/dl Calcium (8.5-10.1) mg/dl POC Ioniz Calcium Reed 1.28 (1.12-1.32) mmol/l Magnesium (1.7-2.4) mg/dl Troponin I High Sens (0-14) pg/ml Lipase (11-82) U/L SARS-CoV-2, RNA, NAAT NEGATIVE (NEGATIVE) Imaging Data Radiologist's Impression: Chest X-Ray 05/30/22 14:23 SINGLE VIEW CHEST CLINICAL HISTORY: Atypical chest pain. Tachycardia. FINDINGS: An AP, portable, upright chest radiograph is compared to chest x-ray and chest CT dated 03/08/2022. The cardiomediastinal silhouette is unremarkable. The lungs and pleural spaces are clear. No pneumothorax is seen. The bony thorax is grossly intact. IMPRESSION: No active disease in the chest. ACT 112: Negative or not required by law. Electronically signed by: Haroon Conley M.D. 05/30/2022 3:26 PM Chest CTA 05/30/22 14:58 CT ANGIOGRAPHY OF THE CHEST, PULMONARY EMBOLUS PROTOCOL CLINICAL HISTORY: Tachycardia. COMPARISON STUDY: Chest CT March 08, 2022. Chest radiograph performed earlier today. TECHNIQUE: Following IV administration of 117 mL of Optiray, helical axial images of the chest were obtained utilizing the pulmonary embolus protocol. Maximal intensity projections and sagittal and coronal reformats were viewed on an independent 3D workstation. IV contrast was administered without complicat ion. Automated exposure control was utilized for the study. A dose lowering technique was utilized adhering to the principles of ALARA. CT DOSE: 363.10 mGy.cm FINDINGS: There are segmental pulmonary emboli within the bilateral lower lobes. Specifically, there are emboli within the arteries to the posterior basal segment of the right lower lobe and the lateral basal segment of the left lower lobe. No pulmonary infarct is noted. No CT evidence for right heart rate. Size of the heart is normal. No pericardial effusion. No thoracic lymphadenopathy is present. No pneumothorax or pleural effusion is noted. Groundglass opacities within the lower lobes represent atelectasis. No acute fracture within the visualized bony thorax. Visualized portions of the upper abdomen are unremarkable. IMPRESSION: Segmental pulmonary emboli within the bilateral lower lobes. No pulmonary infarct. No CT evidence for right heart strain. ACT 112: Negative or not required by law. Electronically signed by: Harinder Moreno M.D. 05/30/2022 4:33 PM ECG Data Additional Comments: EKG #1: SVT with a rate of 218. QRS [address] elevation or ST depression. EKG #2 status post adenosine 6 mg IV bolus and repeat dose of adenosine 12 mg IV bolus: SVT with a rate of 201 QRS [address] elevation or ST depression. EKG #3 status post 50 J cardioversion: SVT with rate of 209. QRS [address] QTC [address] o ST elevation or ST depression. EKG #4 status post 100 J cardioversion: SVT with a rate of 198. QRS [address] elevation or ST depression. EKG #5 status post metoprolol 5 mg IV push: SVT with rate of 165. QRS [address] elevation or ST depression. EKG #6: Sinus rhythm with rate 99. FL 170 QRS [address] elevation or ST depression. [facility] Narrative 1417: The patient was evaluated in room A1. A complete history and physical exam was performed Cardiac monitoring: An order was placed for continuous cardiac monitoring. The monitor shows a rate of 230 with SVT rhythm Large-bore IV access was obtained and the patient was placed on cardiac monitor technician. Adenosine 6 mg IV push was ordered for the patient but did not improve the patient's heart rate and the patient remained in SVT. IV fluids were started. Pads were placed on the patient. We reattempted adenosine push with 12 mg IV push but that again did not break the patient's SVT and the patient remained in SVT with heart rate in the 230s. Patient denies any chest pain difficulty breathing. We then attempted cardioversion at 50 J after given the patient Ativan. Patient was cardioverted with 50 J and the patient did not have any relief and was still in SVT with a rate in the 200s. He reattempted to cardiovert the patient at 100 J after receiving fentanyl and Valium however at this also was unsuccessful and the patient remained in SVT. Patient adamantly denies any cocaine usage or illicit substance usage. Metoprolol 5 mg was ordered for the patient and cardiology Dr. Dumas was consulted. 1517: Patient's heart rate improved to 160 still in SVT after receiving metoprolol 5 mg IV push. Second dose of metoprolol 5 mg IV push was ordered for the patient however the patient remained ventricular rate in the 160s. Dr. Dumas at bedside. 1548: There was discussion with Dr. Dumas about doing a procedural sedation on the patient and cardioverting her at a higher joules between 150-200 J however the patient's symptoms started while she was eating and therefore it was thought to be a contraindication to sedate the patient with propofol given she had just eaten. Dr. Dumas recommends starting procainamide infusion. Given that we plan on starting the patient on procainamide it was thought that the patient would be best served on a monitored bed in the ICU. Dr. Sutherland notified. Spoke with [facility] hospitalist team Bre Fitch stated to admit to Dr. Fried 1613: Vital signs stable. Prior to beginning the procainamide infusion the patient converted into a sinus rhythm on her own. Dr. Dumas recommended an additional 5 mg of Toprol IV push. Repeat EKG confirms sinus rhythm. Patient sent for CT of the chest rule out PE. Labs show an elevated D-dimer of 900 otherwise unremarkable with a negative troponin. 1656: Vital signs stable. Patient remains in sinus rhythm on the cardiac monitor technician. Patient CTA of the chest does show bilateral segmental pulmonary emboli within the bilateral lobes. Patient will be started on heparin. Patient being evaluated by hospitalist team Dr. Fried Impression & Plan Pulmonary emboli, SVT (supraventricular tachycardia) Critical Care Time Critical Care Time: Yes Total Critical Care Time: 124 I have personally spent greater than 124 minutes of critical care time in the direct management of this patient. This includes bedside care, interpretation of diagnostic studies, and testing, discussion with consultants, patient, and family members, and other required patient management activities. This 124 minutes is in excess of all separately billable procedures. Discharge Plan Visit Data Chief Complaint: Arrhythmia/Palpitations Stated Complaint: ABNORMAL HEART PALPITATIONS ED Provider: Tin Ivey Discharge Problem: Pulmonary emboli, SVT (supraventricular tachycardia) Patient Disposition: Admitted As Inpatient Discharge Instructions Interventions: ED Discharge Assessment Last Done: 05/30/22 18:14 Forms Stand Alone Forms: [facility] [place] [employer] Prescriptions Prescriptions: No Action multivitamin Tablet 1 tab PO QAM RF: 0 ondansetron 4 mg tablet,disintegrating 4 mg PO Q6H PRN (Reason: nausea and vomiting) Qty: 10 RF: 0 magnesium oxide 400 mg (241.3 mg magnesium) Tablet 400 mg PO QAM Qty: 30 RF: 0 hydrocortisone 2.5 % cream 1 applic TOPICAL BID PRN (Reason: neck and chest) RF: 0 sertraline 50 mg tablet 100 mg PO QAM RF: 0 Nurtec ODT 75 mg tablet,disintegrating 75 mg PO DAILY PRN (Reason: Migraine Headache) RF: 0 metoprolol succinate 25 mg tablet extended release 24 hr 12.5 mg PO QAM RF: 0 Referrals Referrals: Jesus Zuniga DO [Primary Care Provider] -
--- NOTE | 2022-05-30 15:41 | Cardiology Consultation ---
Date of Consultation May 30, 2022 Assessment & Plan (1) SVT (supraventricular tachycardia): Patient presents with narrow complex tachycardia, initial rate in the range of 225 to 230 bpm with associated near syncope. Blood pressure stable on arrival. Underwent recent pelvic vein ablation 05/21/2022. Tachycardia refractory to multiple medication interventions and trials of cardioversion x2. Upon arrival, we discussed the option of proceeding with conscious sedation, and cardioversion with increased electrical dose however the patient had last eaten just over 2 hours ago, and therefore full conscious sedation not ideal at present. Will proceed with a trial of IV procainamide infusion. Patient also have CT angiogram to rule out pulmonary embolism, given recent periprocedural risks as outlined above. Anticipate need for patient to be admitted for further observation. History of Present Illness History of Present Illness Lilly Valencia is a 37 year old female seen in cardiology consultation per the request of Dr Ivey of Emergency Medicine for the evaluation of supraventricular tachycardia. Patient states that about 30 minutes prior to arrival to the emergency room, at approximately 1:30 PM today, she was sitting at the table having lunch with her son and noted abrupt onset of feeling like an elevated heart rate, with associated lightheadedness and near syncope. She put on her smart watch, was found to have a heart rate in excess of 200 bpm. Her son drove her to the emergency department. Upon arrival, EKG revealed narrow complex tachycardia consistent with supraventricular tachycardia with rate in the range of 225 to 230 bpm. Her blood pressure on presentation today was stable at 127/89. She subsequently underwent treatment including administration of adenosine with doses of 6 mg and 12 mg, and that did not alter the tachycardia. She then received attempts of direct-current cardioversion with 50 J and 100 J with administration of Ativan, that did not modify the tachycardia. She then received metoprolol 5 mg IV x2 doses, and her heart rates have been since improved to 159 to 160 bpm. After the above is all occurred, cardiology consultation was requested for further advice. Upon arrival, ongoing narrow complex tachycardia at 159 bpm noted on telemetry and EKG. Patient comfortable. Patient's past medical history is notable for interventional radiology procedure having been performed 05/21/2022 at [facility] for treatment of pelvic congestion syndrome : Venography, bilateral gonadal vein embolization . The patient reports recovering from this procedure, with no recent complaints. Her last menstrual period to place in 2019. Patient had been admitted for observation at this institution in February,, with subjective palpitations, and EKG at that time consistent with sinus tachycardia at 130 bpm. An echocardiogram was performed revealing no evidence of structural heart disease, and she was discharged with plans of observation and follow-up on no cardiac medications. A 14-day Zio patch monitor was worn in February, with predominant rhythm was sinus rhythm 87 bpm. No significant arrhythmias were observed, patient triggered events correlated with sinus rhythm and sinus tachycardia. Family History: Uncle of presumed myocardial infarction in his 50s. No history of arrhythmias Allergies Allergy/AdvReac Type Severity Reaction Status Date / Time NSAIDS (Non-Steroidal AdvReac Intermediate GI ulcer Verified 05/30/22 15:44 Anti-Inflamma Home Medications Medication Instructions Recorded Confirmed Type multivitamin 1 tab PO QAM 02/21/22 05/30/22 History ondansetron 4 mg disintegrating 4 mg PO Q6H PRN #10 tab 02/21/22 05/30/22 Rx tablet magnesium oxide 400 mg (241.3 mg 400 mg PO QAM #30 tab 03/12/22 05/30/22 Rx magnesium) tablet hydrocortisone 2.5 % topical cream 1 applic TOPICAL BID PRN 05/30/22 05/30/22 History metoprolol succinate 25 mg 12.5 mg PO QAM 05/30/22 05/30/22 History tablet,extended release 24 hr rimegepant 75 mg disintegrating 75 mg PO DAILY PRN 05/30/22 05/30/22 History tablet (Nurtec ODT) sertraline 50 mg tablet 100 mg PO DAILY 05/30/22 05/30/22 History Patient History Medical History Anxiety History of umbilical hernia Kidney stones Menometrorrhagia Ovarian cyst Surgical History History of abdominoplasty Social History Smoking Status: Never smoker Hx Alcohol Use: Yes Alcohol type: hard liquor Hx Substance Use: No Preferred Language: Turkmen Communication Ability: Effective 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 Beliefs That Will Affect Care: None marital status: Single Current Living Situation: Family and Significant Other current occupational status: employed Feels Safe at Home: Yes Assistive Devices: None Review of Systems Review of Systems: All systems reviewed & are unremarkable except as noted in HPI & below Physical Exam Constitutional: no acute distress Respiratory: normal respiratory effort, lungs clear to auscultation Cardiovascular: Rate/Rhythm: + tachycardic Heart Sounds: normal S1 and normal S2; no murmur Vessels: no JVD Extremities: no edema Gastrointestinal (Abdomen): normal bowel sounds, soft, nontender, no hepatosplenomegaly Neurologic: PERRL, EOMI, accommodation nl, no face palsy, no dysarthria Results & Data ([facility]) Vital Signs (Past 12 Hours) Vital Signs Temp Pulse Resp BP Pulse Ox 05/30/22 14:12 37.0 C 222 H 18 127/89 100 Laboratory Results Cardiac Enzymes 05/30/22 Range/Units 14:20 Troponin I High Sens 2.5 (0-14) pg/ml Coagulation 05/30/22 Range/Units 14:20 PT 10.4 (9.0-12.0) Seconds APTT 26.5 (21.0-31.0) Seconds CBC 05/30/22 Range/Units 14:20 WBC 11.48 H (4.8-10.8) K/ul RBC 4.83 (3.93-5.22) M/uL Hgb 14.6 (12.0-16.0) g/dl Hct 44.6 (34.1-44.9) % Plt Count 454 H (130-400) K/uL Neut # (Auto) 6.06 (1.4-6.5) K/uL Lymph # (Auto) 3.82 H (1.2-3.4) K/uL [place] # (Auto) 1.02 H (0.24-0.82) K/uL Eos # (Auto) 0.30 (0-0.50) K/uL Baso # (Auto) 0.11 (0-0.2) K/uL Comprehensive Metabolic Panel 05/30/22 Range/Units 14:20 Sodium 138 (136-145) mmol/L Potassium 3.7 (3.5-5.1) mmol/L Chloride 103 (98-107) mmol/L Carbon Dioxide 25 (21-32) mmol/L BUN 11 (6-23) mg/dl Creatinine 0.68 (0.6-1.2) mg/dl Glucose 124 H (70-99(Fasting)) mg/dl Calcium 9.8 (8.5-10.1) mg/dl Intake and Output 05/30/22 05/30/22 05/30/22 06:59 14:59 22:59 Other: Weight 64.3 kg Weight Measurement Method Chair Scale Patient Weight 05/31/22 06:59 Weight 64.3 kg
[2022-05-30] MEDS ORDERED: DEXTROSE 5% 1,000 ML IV SCH (16:00)
--- NOTE | 2022-05-30 16:00 | History & Physical Report ---
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 SVT admit to PCU CTA chest with segmental PE - Starting IV heparin Given pt reverted to sinus tach IV procainamide infusion not started cardiology consulted and already saw patient, appreciate Dr. Bonilla recommendations replace K and Mag to keep K > 4 and Mag > 2.0 echo 02/2022 EF 55-60%, no significant pathology repeat echo in a.m. Oral metoprolol tartrate started 25mg BID Segmental PE, likely provoked from recent embolization IV heparin started consider switching to oral eliquis in a.m. if compatible with insurance Pelvic congestion syndrome s/p embolization continues to have LLQ pain place on norco q4h prn DVT ppx: IV heparin Dispo: PCU PCP: Jesus Zuniga Full Code Pt was seen and examined in collaboration with Dr. 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 Sx started when she was eating lunch. She also has associated lightheadedness, dizziness and near syncope. She placed her smart watch on her wrist and her HR was noted to be in 200s. She came immediately to ER. In ED pt was found to be in SVT with heart rates 220s-230. Her arrhythmia was refractory to adenosine 6mg x 1 and 12mg x 1. Low voltage cardioversion was tried as well x 2 at 50J and 100J. These attempts were unsuccessful. Given that patient recently ate lunch it was felt that conscious sedation risk was greater than benefit given concern for aspiration. 5mg of IV metoprolol was tried as well x 1 with improvements in HR to 150s-160s. Coppersmith Apprentice Dr. Bonilla was at bedside. Initially place was discussed with ED Provider and ICU provider to start Procainamide infusion. However, while network security consultant was in room patient slowly trended down and reverted to a sinus tachycardia. CTA was obtained which revealed bilateral subsegmental pulmonary embolism. She does admit to 3 days after the embolization she was on light duty and did rest a lot. She denies any recent travel or airplane travel. She denies any prior history of clotting. When her symptoms started today she did admit to feeling lightheadedness, dizziness and this left upper chest pressure. This has since resolved. She remains in sinus rhythm. She denies any recent illness, fever, chills, sweats, shortness of breath at rest, cough, hemoptysis, URI symptoms, nausea, vomiting, dysuria, increased urgency or frequency with urination. She continues to have left lower quadrant pelvic pain. She feels pain is actually worse since she had the embolization. She is requesting something for pain. At home she has been using Tylenol with no relief. In the past they have given her Percocet. Of significance pt was hospitalized February 202212/26 to palpitations. She was started on metoprolol succinate but no overt arrhythmia was noted. She had a ZIO monitor placed for 2 weeks and predominant rhythm being sinus 87bpm. She did not follow up with Cardiology OP as appt was cancelled. Allergies Allergy/AdvReac Type Severity Reaction Status Date / Time NSAIDS (Non-Steroidal AdvReac Intermediate GI ulcer Verified 05/30/22 15:44 Anti-Inflamma Home Medications Medication Instructions Recorded Confirmed Type multivitamin 1 tab PO QAM 02/21/22 05/30/22 History ondansetron 4 mg disintegrating 4 mg PO Q6H PRN #10 tab 02/21/22 05/30/22 Rx tablet magnesium oxide 400 mg (241.3 mg 400 mg PO QAM #30 tab 03/12/22 05/30/22 Rx magnesium) tablet hydrocortisone 2.5 % topical cream 1 applic TOPICAL BID PRN 05/30/22 05/30/22 History metoprolol succinate 25 mg 12.5 mg PO QAM 05/30/22 05/30/22 History tablet,extended release 24 hr rimegepant 75 mg disintegrating 75 mg PO DAILY PRN 05/30/22 05/30/22 History tablet (Nurtec ODT) sertraline 50 mg tablet 100 mg PO QAM 05/30/22 05/30/22 History Past Med/Surg History Medical History (Updated 05/30/22 @ 17:24 by Bre Louise PA-C) Anxiety Depression History of umbilical hernia Hx of Lyme disease Kidney stones Menometrorrhagia Ovarian cyst Pelvic congestion syndrome s/p Pelvic vein embolization Uterine leiomyoma Surgical History (Updated 05/30/22 @ 17:24 by Bre Louise PA-C) History of abdominoplasty History of History of hysteroscopy Family History (Updated 05/30/22 @ 15:58 by Bre Louise PA-C) Uncle , 50s Myocardial infarction 50s Mother Cancer cervical Other Diabetes Social History Smoking Status: Never smoker Hx Alcohol Use: Yes Alcohol type: hard liquor Hx Substance Use: No Preferred Language: Kinyarwanda Communication Ability: Effective Social Security Specialist Required: No Beliefs That Will Affect Care: None marital status: Single Current Living Situation: Family and Significant Other current occupational status: employed Feels Safe at Home: Yes Assistive Devices: None Review of Systems Review of Systems: All systems reviewed & are unremarkable except as noted in HPI & below Physical Exam Physical Exam: Constitutional: WD/WN, vitals as above, NAD, sitting up in bed, pleasant, conversing easily Head: Normocephalic, Atraumatic Eyes: PERRL, conjunctivae normal, anicteric sclerae ENMT: external ear and nose normal, oropharynx normal Neck: trachea midline, no thyromegaly normal visual inspection Respiratory: normal respiratory effort, lungs clear to auscultation, no wheeze, rales, rhonchi. Normal insp/exp effort, no accessory muscle use Cardiovascular: tachycardic rate, regular rhythm, no murmur, no edema Vessels: no JVD or carotid bruit Chest: normal inspection of chest Abdomen: normal bowel sounds, soft, nontender, no hepatosplenomegaly Musculoskeletal: no cyanosis or clubbing, extremities motor strength 5/5 Skin: no rashes, warm and dry normal turgor Neurologic: PERRL, EOMI, accommodation nl, no face palsy, no dysarthria CN's II-XI intact bilaterally and moves all extremities Psychiatric: A+Ox3, euthymic affect Lymphatic: no cervical or axillary lymphadenopathy : deferred Results & Data Results & Data ([facility]) Vital Signs (Past 12 Hours) Vital Signs Temp Pulse Resp BP Pulse Ox 05/30/22 15:30 162 H 0 L 114/91 100 05/30/22 15:20 159 H 0 L 98 05/30/22 15:15 160 H 0 L 119/99 98 05/30/22 15:10 160 H 0 L 99 05/30/22 15:02 161 H 15 123/104 H 98 05/30/22 15:00 159 H 16 98 05/30/22 14:58 165 H 146/108 H 05/30/22 14:50 205 H 20 99 05/30/22 14:43 164 H 148/97 H 05/30/22 14:40 196 H 24 97 05/30/22 14:30 210 H 13 99 05/30/22 14:25 225 H 21 05/30/22 14:12 37.0 C 222 H 18 127/89 100 Diagnostic Findings Chest X-Ray 05/30/22 14:23 SINGLE VIEW CHEST CLINICAL HISTORY: Atypical chest pain. Tachycardia. FINDINGS: An AP, portable, upright chest radiograph is compared to chest x-ray and chest CT dated 03/08/2022. The cardiomediastinal silhouette is unremarkable. The lungs and pleural spaces are clear. No pneumothorax is seen. The bony thorax is grossly intact. IMPRESSION: No active disease in the chest. ACT 112: Negative or not required by law. Electronically signed by: Haroon Conley M.D. 05/30/2022 3:26 PM IMPRESSION: Segmental pulmonary emboli within the bilateral lower lobes. No pulmonary infarct. No CT evidence for right heart strain. Medications Administered Medication List Discontinued Medications Adenosine (Adenosine Iv Soln 3 Mg/Ml 2 Ml Vial) Confirm Administered Dose 6 mg I V .STK-MED ONE Stop: 05/30/22 14:22 Last Admin: 05/30/22 15:40 Dose: Not Given Documented by: [id number] Adenosine (Adenosine Iv Soln 3 Mg/Ml 2 Ml Vial) 6 mg IV NOW STA Stop: 05/30/22 14:25 Last Admin: 05/30/22 14:20 Dose: 6 mg Documented by: [id number] Adenosine (Adenosine Iv Soln 3 Mg/Ml 2 Ml Vial) 12 mg IV NOW STA Stop: 05/30/22 14:30 Last Admin: 05/30/22 14:34 Dose: 12 mg Documented by: [id number] Diazepam (Diazepam 5 Mg/Ml Inj 10ml Vial) 5 mg IV NOW STA Stop: 05/30/22 14:44 Last Admin: 05/30/22 14:47 Dose: 5 mg Documented by: [id number] Fentanyl Citrate (Fentanyl Citrate 100 Mcg/2 Ml Vial) 50 mcg IV NOW STA Stop: 05/30/22 14:44 Last Admin: 05/30/22 14:53 Dose: 50 mcg Documented by: [id number] Fentanyl Citrate (Fentanyl Citrate 100 Mcg/2 Ml Vial) Confirm Administered Dose 100 mcg .ROUTE .[employer] ONE Stop: 05/30/22 14:46 Last Admin: 05/30/22 15:41 Dose: Not Given Documented by: [id number] Procainamide HCl 1,000 mg/ (Dextrose) 102 mls @ 2 mls/min IV TODAY@1345 ONE; Protocol Stop: 05/31/22 14:35 Last Admin: 05/30/22 15:48 Dose: 2 mls/min Documented by: [id number] Lorazepam (Lorazepam 2 Mg/1 Ml Vial) 1 mg IV NOW STA; Protocol Stop: 05/30/22 14:30 Last Admin: 05/30/22 14:40 Dose: 2 mg Documented by: [id number] Lorazepam (Lorazepam 2 Mg/1 Ml Vial) 1 mg IV NOW STA; Protocol Stop: 05/30/22 14:37 Last Admin: 05/30/22 15:46 Dose: Not Given Documented by: [id number] Metoprolol Tartrate (Metoprolol Tartrate 1 Mg/Ml Vial) Confirm Administered Dose 5 mg IV .[employer]-MED ONE Stop: 05/30/22 14:52 Last Admin: 05/30/22 14:58 Dose: 5 mg Documented by: [id number] Metoprolol Tartrate (Metoprolol Tartrate 1 Mg/Ml Vial) 5 mg IV NOW STA Stop: 05/30/22 14:52 Last Admin: 05/30/22 14:43 Dose: 5 mg Documented by: [id number] ECG Rate (beats per minute): 225 Rhythm: SVT COVID-19 Results Results COVID-19 Adm Lab Results: RBC 4.83 M/uL (3.93-5.22) 05/30/22 WBC 11.48 K/ul (4.8-10.8) H 05/30/22 Hgb 14.6 g/dl (12.0-16.0) 05/30/22 Hct 44.6 % (34.1-44.9) 05/30/22 Plt Count 454 K/uL (130-400) H 05/30/22 Neutrophils (%) (Auto) 52.7 % 05/30/22 Lymphocytes (%) (Auto) 33.3 % 05/30/22 Monocytes # (Auto) 1.02 K/uL (0.24-0.82) H 05/30/22 Eosinophils # (Auto) 0.30 K/uL (0-0.50) 05/30/22 Immature Granulocyte % (Auto) 1.5 % 05/30/22 Neutrophils # (Auto) 6.06 K/uL (1.4-6.5) 05/30/22 Lymphocytes # (Auto) 3.82 K/uL (1.2-3.4) H 05/30/22 Monocytes # (Auto) 1.02 K/uL (0.24-0.82) H 05/30/22 Eosinophils # (Auto) 0.30 K/uL (0-0.50) 05/30/22 Basophils # (Auto) 0.11 K/uL (0-0.2) 05/30/22 Immature Granulocyte # (Auto) 0.17 K/uL (0.00-0.02) H 05/30/22 Na 138 mmol/L (136-145) 05/30/22 K 3.7 mmol/L (3.5-5.1) 05/30/22 Cl 103 mmol/L (98-107) 05/30/22 CO2 25 mmol/L (21-32) 05/30/22 Anion Gap 10 (3-11) 05/30/22 BUN 11 mg/dl (6-23) 05/30/22 Creatinine 0.68 mg/dl (0.6-1.2) 05/30/22 BUN/Creatinine Ratio 16.2 (10-20) 05/30/22 Glucose Level 124 mg/dl (70-99(Fasting)) H 05/30/22 Ca 9.8 mg/dl (8.5-10.1) 05/30/22 D-Dimer 900 ug/L FEU (0-500) H* 05/30/22 PTT 26.5 Seconds (21.0-31.0) 05/30/22 INR 1.0 (0.9-1.1) 05/30/22 SARS-CoV-2, RNA, NAAT NEGATIVE (NEGATIVE) 05/30/22 Chest X-Ray 05/30/22 Code Status & VTE Plan Code Status FULL CODE VTE Prophylaxis Plan VTE Prophylaxis will be ordered: Yes Supervising Physician Co-Signing Physician Notes 37 yo F w/ PMH of lyme disease, uterine leiomyoma, chronic pelvic pain syndrome s/p pelvic vein ablation 05/21, anxiety & palpitation presented 05/30 to our ED w/ c/o palpitation that started while she was having lunch. Of note, pt was admitted 03/11-03/12/22 for tachycardia/hypomagnesemia and was discharged with zio patch monitoring recommendation which basically showed sinus rhythm or sinus tach per d/w cardiology. Pt also complains of having feeling of heart racing once a week that calms down on its own but this was different, and per her, her HR were in 210s according to her apple watch. Patient did have some chest discomfort and upper chest x left, lightheadedness and anxiety around the time. Of note, family hx significant for uncle passing away from likely [place] in his mid 50s. In the ED, pvc monitor revealed SVT with heart rate in 230s, status post IV adenosine x2, IV metoprolol x2, cardioversion x2 without improvement. Plan was for procainamide infusion in ICU but patient's heart rate improved and received third dose of IV metoprolol with further improvement in heart rate. Continue to monitor over PCU/telemetry. Cardiology on board, appreciate recommendation. Recent echo on 03/11/22 reviewed/wnl, plan for repeat echo in AM. Due to concerns of her recent bilateral gonadal vein embolization in 05/21/2022 and associated immobility, CTA chest was sent to rule out PE and came back positive for segmental PE. Heparin drip, to be transitioned to NOAC upon discharge. Upon examination: GENERAL: Alert and oriented x3. NAD, on 2L NC O2. HEENT: No pallor, no icterus. Pupils equal, round and reactive to light. Oral mucosa moist. NECK: No JVD, no neck masses. HEART: S1 and S2 heard. tachycardia. No murmur, no gallop. RESPIRATORY SYSTEM: Normal AP diameter. No accessory muscle use. No wheezing, no crackles. ABDOMEN: Soft, bowel sounds present, nontender, no distention. CENTRAL NERVOUS SYSTEM: No facial droop. Speech is clear. Obeys simple commands. Moves extremities. EXTREMITIES: No edema, no erythema seen. I have seen and examined the patient and have discussed the case with the provider above. I agree with the assessment and plan as stated.
[2022-05-30] MEDS ORDERED: OPTIRAY 320 125ml IV ONE (16:19)
[2022-05-30] MEDS ORDERED: POTASSIUM CHLORIDE CRTAB 20 MEQ TABCR PO STA (16:19)
[2022-05-30] MEDS ORDERED: METOPROLOL TARTRATE 25 MG TAB PO STA ×2 (16:34→17:52)
--- NOTE | 2022-05-30 16:34 | CT Scan Report ---
CT ANGIOGRAPHY OF THE CHEST, PULMONARY EMBOLUS PROTOCOL CLINICAL HISTORY: Tachycardia. COMPARISON STUDY: Chest CT March 08, 2022. Chest radiograph performed earlier today. TECHNIQUE: Following IV administration of 117 mL of Optiray, helical axial images of the chest were o btained utilizing the pulmonary embolus protocol. Maximal intensity projections and sagittal and cor onal reformats were viewed on an independent 3D workstation. IV contrast was administered without co mplication. Automated exposure control was utilized for the study. A dose lowering technique was ut ilized adhering to the principles of ALARA. CT DOSE: 363.10 mGy.cm FINDINGS: There are segmental pulmonary emboli within the bilateral lower lobes. Specifically, there are emboli within the arteries to the posterior basal segment of the right lower lobe and the latera l basal segment of the left lower lobe. No pulmonary infarct is noted. No CT evidence for right heart rate. Size of the heart is normal. No pericardial effusion. No thoracic lymphadenopathy is present. No pneumothorax or pleural effusion is noted. Groundglass opacities within the lower lobes represent atelectasis. No acute fracture within the visualized bony thorax. Visualized portions of the upper ab domen are unremarkable. IMPRESSION: Segmental pulmonary emboli within the bilateral lower lobes. No pulmonary infarct. No CT evidence for right heart strain. ACT 112: Negative or not required by law. Electronically signed by: Harinder Moreno M.D. 05/30/2022 4:33 PM
[2022-05-30] MEDS ORDERED: Heparin IV Adult Wt-Based Standard WITH Bolus Protocol IV STA (16:41)
[2022-05-30] MEDS ORDERED: HEPARIN SOD (PORCINE) 1000 UNIT/ML IV ONE ×2 (16:56→17:45)
[2022-05-30] MEDS ORDERED: HYDROCODONE/ACETAMOPHEN 5/325MG TAB PO STA (16:59)
[2022-05-30] MEDS ORDERED: HEPARIN SODIUM/DEXTROSE 25,000 UNITS/500 ML BAG IV SCH (17:00)
[2022-05-30] MEDS ORDERED: ASPIRIN CHEW 324 MG ONE (17:09)
[2022-05-30] MEDS ORDERED: ACETAMINOPHEN 325 MG TAB PO PRN (19:13)
[2022-05-30] MEDS ORDERED: ALUMINUM/MAGNESIUM SUSP 30 ML UDC PO PRN (19:13)
[2022-05-30] MEDS ORDERED: POLYETHYLENE (MIRALAX) 17 GM PACK PO PRN (19:13)
[2022-05-30] MEDS ORDERED: MAGNESIUM HYDROXIDE SUSP 30 ML UDC PO PRN (19:13)
[2022-05-30] MEDS ORDERED: ONDANSETRON INJ 2 MG/ML 2 ML VIAL IV PRN (19:13)
[2022-05-30] MEDS: SODIUM CHLORIDE 0.9% 1000ML 1,000 ML IV SCH (19:56)
[2022-05-30] MEDS: MAGNESIUM SULFATE / D5W 1 GM/100 ML BAG IV SCH ×2 (19:59→22:02)
[2022-05-30] MEDS: HYDROCODONE/ACETAMOPHEN 5/325MG TAB PO PRN (21:22)
[2022-05-31 00:10] LABS: Partial Thromboplastin Time 137.3 Seconds (21.0-31.0)
[2022-05-31] MEDS: SODIUM CHLORIDE 0.9% 1000ML 1,000 ML IV SCH ×2 (03:47→10:49)
[2022-05-31] MEDS: HYDROCODONE/ACETAMOPHEN 5/325MG TAB PO PRN (07:44)
[2022-05-31] MEDS ORDERED: MAGNESIUM OXIDE 400 MG TAB PO SCH (09:00)
[2022-05-31] MEDS ORDERED: SERTRALINE HCL 100 MG TABLET PO SCH (09:00)
[2022-05-31] MEDS ORDERED: MULTIVITAMIN TAB PO SCH (09:00)
[2022-05-31] MEDS ORDERED: METOPROLOL TARTRATE 25 MG TAB PO SCH (09:00)
[2022-05-31] MEDS ORDERED: APIXABAN 5 MG TABLET PO SCH (09:15)
[2022-05-31 09:18] LABS: Basophils # (auto) 0.12 K/uL (0-0.2); Basophils % (auto) 1.5 %; Eosinophils # (auto) 0.34 K/uL (0-0.50); Eosinophils % (auto) 4.3 %; Hematocrit (blood only) 36.8 % (34.1-44.9); Hemoglobin 12.1 g/dl (12.0-16.0); Immature Granulocytes # (auto) 0.12 K/uL (0.00-0.02); Immature Granulocytes % (auto) 1.5 %; Lymphocytes # (auto) 2.78 K/uL (1.2-3.4); Lymphocytes % (auto) 34.9 %; Mean Corpuscular Hemoglobin 30.3 pg (25.0-34.0); Mean Corpuscular Hgb Conc 32.9 g/dL (32.0-36.0); Mean Platelet Volume 8.9 fL (9.4-12.3); Monocytes % (auto) 6.3 %; Neutrophils # (auto) 4.11 K/uL (1.4-6.5); Neutrophils % (auto) 51.5 %; Platelet Count 340 K/uL (130-400); RDW Coefficient of Variation 13.6 % (11.5-14.5); RDW Standard Deviation 46.5 fL (36.4-46.3); White Blood Count 7.97 K/ul (4.8-10.8)
[2022-05-31 09:44] LABS: Albumin Level 3.5 gm/dl (3.4-5.0); BUN Creatinine Ratio 8.3 (10-20); Bilirubin Direct 0.1 mg/dl (0-0.2); Bilirubin,Total 0.4 mg/dl (0.2-1.0); Calcium 8.3 mg/dl (8.5-10.1); Creatinine Clr Calc Pharmacy 145.3 ml/min; Est GFR (African American) 143.2 ml/min; Est GFR (Non-African American) 123.6 ml/min; Potassium 4.1 mmol/L (3.5-5.1); Total Protein 6.1 gm/dl (6.0-8.3)
--- NOTE | 2022-05-31 11:03 | Cardiology Progress Note ---
Date of Service May 31, 2022 Assessment & Plan (1) SVT (supraventricular tachycardia): (2) Pulmonary emboli: Plan: Patient presented with symptomatic very rapid supraventricular tachycardia and initial heart rate 225 to 230 bpm, with EKG suggestive of possible bypass tract. Given findings of bilateral segmental PE CTA in seeding of recent pelvic vein ablation by interventional radiology , this explains why the tachycardia was refractory to initial treatment with adenosine and electrical cardioversion. Echocardiogram this am reveals normal biventricular systolic function. No pulmonary HTN. No significant valvular pathology. Discharge on increased dose of metoprolol succinate. Was on metoprolol succinate 12.5 mg daily as outpt. Increase to metoprolol succinate 25 mg two times per day. Agree with Eliquis for treatment of PE. Heparin discontinued , Eliquis 10 mg BID x 7 days , and 5 mg BID thereafter. Given (?provoked) PE , recommend at least 3 -6 months of anticoagulation. Consider hypercoagulable work up evaluation as outpatient, however, given recent instrumentation etiology likley already known. Follow up with PCP. Follow up with Cardiology within a month. Stable for discharge from cardiac perspective. Admission and Anticipated Discharge Date Admission Date: May 30, 2022 Subjective Patient seen in cardiology follow up. She felt well overnight. Denies chest discomfort, shortness of breath, subjective palpitations, telemetry revealed sinus rhythm overnight, without any recurrence of atrial arrhythmias. After she had been assessed acutely by the undersigned, CT angiogram revealed bilateral segmental pulmonary emboli, anticoagulation started appropriately. Review of Systems Review of Systems: All systems reviewed & are unremarkable except as noted in HPI & below Physical Exam Constitutional: no acute distress Respiratory: normal respiratory effort, lungs clear to auscultation Cardiovascular: Rate/Rhythm: + tachycardic Heart Sounds: normal S1 and normal S2; no murmur Vessels: no JVD Extremities: no edema Gastrointestinal (Abdomen): normal bowel sounds, soft, nontender, no hepatosplenomegaly Neurologic: PERRL, EOMI, accommodation nl, no face palsy, no dysarthria Results & Data ([facility]) Vital Signs (Past 12 Hours) Vital Signs Temp Pulse Pulse Resp BP Pulse Ox 05/31/22 07:59 36.8 C 79 18 121/82 100 05/31/22 02:48 36.5 C 74 16 106/72 96 05/30/22 23:34 72 05/30/22 23:29 82 07/07/22 23:14 36.7 C 68 18 110/75 95 Laboratory Results Cardiac Enzymes 05/30/22 05/31/22 Range/Units 14:20 09:05 AST 13 (13-39) U/L Troponin I High Sens 2.5 (0-14) pg/ml Coagulation 05/30/22 05/30/22 Range/Units 14:20 22:49 PT 10.4 (9.0-12.0) Seconds APTT 26.5 137.3 H* (21.0-31.0) Seconds CBC 05/30/22 05/31/22 Range/Units 14:20 09:05 WBC 11.48 H 7.97 (4.8-10.8) K/ul RBC 4.83 4.00 (3.93-5.22) M/uL Hgb 14.6 12.1 (12.0-16.0) g/dl Hct 44.6 36.8 (34.1-44.9) % Plt Count 454 H 340 (130-400) K/uL Neut # (Auto) 6.06 4.11 (1.4-6.5) K/uL Lymph # (Auto) 3.82 H 2.78 (1.2-3.4) K/uL Harney # (Auto) 1.02 H 0.50 (0.24-0.82) K/uL Eos # (Auto) 0.30 0.34 (0-0.50) K/uL Baso # (Auto) 0.11 0.12 (0-0.2) K/uL Comprehensive Metabolic Panel 05/30/22 05/31/22 Range/Units 14:20 09:05 Sodium 138 136 (136-145) mmol/L Potassium 3.7 4.1 (3.5-5.1) mmol/L Chloride 103 110 H (98-107) mmol/L Carbon Dioxide 25 24 (21-32) mmol/L BUN 11 4 L (6-23) mg/dl Creatinine 0.68 0.48 L (0.6-1.2) mg/dl Glucose 124 H 107 H (70-99(Fasting)) mg/dl Calcium 9.8 8.3 L (8.5-10.1) mg/dl Direct Bilirubin 0.1 (0-0.2) mg/dl AST 13 (13-39) U/L ALT 7 (7-52) U/L Alkaline Phosphatase 55 (34-104) U/L Total Protein 6.1 (6.0-8.3) gm/dl Albumin 3.5 (3.4-5.0) gm/dl Intake and Output 05/30/22 05/31/22 05/31/22 22:59 06:59 14:59 Intake Total 114 / 7366.191 2714.333 / 1594.333 128.667 / 128.667 Balance 114 / 0267.992 7655.333 / 1594.333 128.667 / 128.667 Intake: IV 114 / 7918.664 9419.333 / 1354.333 128.667 / 128.667 Heparin Sodium/Dextrose 25,000 140.333 / 140.333 128.667 / 128.667 units In 500 ml @ 1,000 UNITS/ HR 20 mls/hr IV .Q24H [facility] Rx#: [id number] Magnesium Sulfate / D5w 1 gm In 100 / 200 100 / 200 100 ml @ 50 mls/hr IV Q1H [facility] Rx#:[id number] Procainamide 1,000 mg In 14 / 14 Dextrose 5% 100 ml @ 2 mls/min IV TODAY@1345 ONE Rx#:[id number] Sodium Chloride 0.9% 1000ML 1, 1000 / 1000 000 ml @ 125 mls/hr IV .Q8H [facility] Rx#:[id number] Oral 240 / 240 Other: # Unmeasured Voids 1 2 Weight 64.3 kg 67.6 kg Weight Measurement Method Chair Scale Built in [facility] (1) Pulmonary emboli Pulmonary embolism type: multiple subsegmental (without acute cor pulmonale) Qualified Code(s): I26.94 - Multiple subsegmental pulmonary emboli without acute cor pulmonale
--- NOTE | 2022-05-31 13:40 | Electrocardiogram Report ---
Test Reason : Blood Pressure : / mmHG Vent. Rate : 201 BPM Atrial Rate : 192 BPM P-R Int : 000 ms QRS Dur : 066 ms QT Int : 224 ms P-R-T Axes : 000 055 -42 degrees QTc Int : 409 ms Poor data quality, interpretation may be adversely affected Supraventricular tachycardia Nonspecific ST abnormality Abnormal ECG When compared with ECG of 12-MAR-2022 08:00, Vent. rate has increased BY 127 BPM Supraventricular tachycardia has replaced Sinus rhythm Confirmed by Josh Doyle ([id number]) on 05/31/2022 1:40:07 PM Referred By: REFERRED SELF Confirmed By:Josh Doyle
--- NOTE | 2022-05-31 13:41 | Electrocardiogram Report ---
Test Reason : Blood Pressure : / mmHG Vent. Rate : 218 BPM Atrial Rate : 220 BPM P-R Int : 000 ms QRS Dur : 056 ms QT Int : 202 ms P-R-T Axes : 000 046 211 degrees QTc Int : 384 ms Poor data quality, interpretation may be adversely affected Supraventricular tachycardia Nonspecific ST and T wave abnormality Abnormal ECG When compared with ECG of 30-MAY-2022 14:21, No significant change Confirmed by Josh Doyle ([id number] on 05/31/2022 1:40:56 PM Referred By: REFERRED SELF Confirmed By:Josh Doyle
--- NOTE | 2022-05-31 13:42 | Electrocardiogram Report ---
Test Reason : Blood Pressure : / mmHG Vent. Rate : 209 BPM Atrial Rate : 214 BPM P-R Int : 000 ms QRS Dur : 060 ms QT Int : 206 ms P-R-T Axes : 000 056 180 degrees QTc Int : 384 ms Poor data quality, interpretation may be adversely affected Supraventricular tachycardia Nonspecific ST and T wave abnormality Abnormal ECG When compared with ECG of 30-MAY-2022 14:38, No significant change was found Confirmed by Josh Doyle ([id number] on 05/31/2022 1:41:34 PM Referred By: REFERRED SELF Confirmed By:Josh Doyle
[2022-05-31] MEDS ORDERED: DEXTROSE 5% IV ONE (13:45)
[2022-05-31] MEDS ORDERED: PROCAINAMIDE IV ONE (13:45)
--- NOTE | 2022-05-31 14:36 | Discharge Summary ---
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 Sx started when she was eating lunch. She also has associated lightheadedness, dizziness and near syncope. She placed her smart watch on her wrist and her HR was noted to be in 200s. She came immediately to ER. In ED pt was found to be in SVT with heart rates 220s-230. Her arrhythmia was refractory to adenosine 6mg x 1 and 12mg x 1. Low voltage cardioversion was tried as well x 2 at 50J and 100J. These attempts were unsuccessful. Given that patient recently ate lunch it was felt that conscious sedation risk was greater than benefit given concern for aspiration. 5mg of IV metoprolol was tried as well x 1 with improvements in HR to 150s-160s. Talkback Host Dr. Bonilla was at bedside. Initially place was discussed with ED Provider and ICU provider to start Procainamide infusion. However, while nursing education consultant was in room patient slowly trended down and reverted to a sinus tachycardia. CTA was obtained which revealed bilateral subsegmental pulmonary embolism. She does admit to 3 days after the embolization she was on light duty and did rest a lot. She denies any recent travel or airplane travel. She denies any prior history of clotting. When her symptoms started today she did admit to feeling lightheadedness, dizziness and this left upper chest pressure. This has since resolved. She remains in sinus rhythm. She denies any recent illness, fever, chills, sweats, shortness of breath at rest, cough, hemoptysis, URI symptoms, nausea, vomiting, dysuria, increased urgency or frequency with urination. She continues to have left lower quadrant pelvic pain. She feels pain is actually worse since she had the embolization. She is requesting something for pain. At home she has been using Tylenol with no relief. In the past they have given her Percocet. Of significance pt was hospitalized February 2022 2/ to palpitations. She was started on metoprolol succinate but no overt arrhythmia was noted. She had a ZIO monitor placed for 2 weeks and predominant rhythm being sinus 87bpm. She did not follow up with Cardiology OP as appt was cancelled. Admission Exam Per Admitting Provider Constitutional: WD/WN, vitals as above, NAD, sitting up in bed, pleasant, conversing easily Head: Normocephalic, Atraumatic Eyes: PERRL, conjunctivae normal, anicteric sclerae ENMT: external ear and nose normal, oropharynx normal Neck: trachea midline, no thyromegaly normal visual inspection Respiratory: normal respiratory effort, lungs clear to auscultation, no wheeze, rales, rhonchi. Normal insp/exp effort, no accessory muscle use Cardiovascular: tachycardic rate, regular rhythm, no murmur, no edema Vessels: no JVD or carotid bruit Chest: normal inspection of chest Abdomen: normal bowel sounds, soft, nontender, no hepatosplenomegaly Musculoskeletal: no cyanosis or clubbing, extremities motor strength 5/5 Skin: no rashes, warm and dry normal turgor Neurologic: PERRL, EOMI, accommodation nl, no face palsy, no dysarthria CN's II-XI intact bilaterally and moves all extremities Psychiatric: A+Ox3, euthymic affect Lymphatic: no cervical or axillary lymphadenopathy : deferred Principal Diagnosis SVT, Acute bilateral segmental PE without cor pulmonale or hypoxia Discharge Data Allergies Allergy/AdvReac Type Severity Reaction Status Date / Time NSAIDS (Non-Steroidal AdvReac Intermediate GI ulcer Verified 05/30/22 15:44 Anti-Inflamma Consultations 05/30/22 15:41 ED Decision to Admit Stat 05/30/22 15:51 Consult Cardiology Routine Ordered Studies 05/30/22 14:58 CT angio chest PE protocol Stat Laboratory Results WBC 7.97 K/ul (4.8-10.8) 05/31/22 09:05 RBC 4.00 M/uL (3.93-5.22) 05/31/22 09:05 Hgb 12.1 g/dl (12.0-16.0) 05/31/22 09:05 POC Hgb 16.0 g/dl (12.0-16.0) 05/30/22 14:34 Hct 36.8 % (34.1-44.9) 05/31/22 09:05 POC Hct 47 % (37-47) 05/30/22 14:34 MCV 92.0 fL (80.0-100.0) 05/31/22 09:05 MCH 30.3 pg (25.0-34.0) 05/31/22 09:05 MCHC 32.9 g/dL (32.0-36.0) 05/31/22 09:05 RDW Std Deviation 46.5 fL (36.4-46.3) H 05/31/22 09:05 RDW Coeff of Mak 13.6 % (11.5-14.5) 05/31/22 09:05 Plt Count 340 K/uL (130-400) 05/31/22 09:05 MPV 8.9 fL (9.4-12.3) L 05/31/22 09:05 Immature Gran % (Auto) 1.5 % 05/31/22 09:05 Neut % (Auto) 51.5 % 05/31/22 09:05 Lymph % (Auto) 34.9 % 05/31/22 09:05 Jones % (Auto) 6.3 % 05/31/22 09:05 Eos % (Auto) 4.3 % 05/31/22 09:05 Baso % (Auto) 1.5 % 05/31/22 09:05 Neut # (Auto) 4.11 K/uL (1.4-6.5) 05/31/22 09:05 Lymph # (Auto) 2.78 K/uL (1.2-3.4) 05/31/22 09:05 Jones # (Auto) 0.50 K/uL (0.24-0.82) 05/31/22 09:05 Eos # (Auto) 0.34 K/uL (0-0.50) 05/31/22 09:05 Baso # (Auto) 0.12 K/uL (0-0.2) 05/31/22 09:05 Immature Gran # (Auto) 0.12 K/uL (0.00-0.02) H 05/31/22 09:05 PT 10.4 Seconds (9.0-12.0) 05/30/22 14:20 INR 1.0 (0.9-1.1) 05/30/22 14:20 APTT 137.3 Seconds (21.0-31.0) H* 05/30/22 22:49 PTT Ratio 5.0 05/30/22 22:49 D-Dimer 900 ug/L FEU (0-500) H* 05/30/22 14:20 POC Sodium 139 mmol/L (135-144) 05/30/22 14:34 Sodium 136 mmol/L (136-145) 05/31/22 09:05 POC Potassium 3.8 mmol/L (3.3-5.0) 05/30/22 14:34 Potassium 4.1 mmol/L (3.5-5.1) 05/31/22 09:05 POC Chloride 104 mmol/L (101-112) 05/30/22 14:34 Chloride 110 mmol/L (98-107) H 05/31/22 09:05 Carbon Dioxide 24 mmol/L (21-32) 05/31/22 09:05 POC Total CO2 25 mmol/L (24-31) 05/30/22 14:34 Anion Gap 2 (3-11) L 05/31/22 09:05 POC Anion Gap 15.0 mmol/L (16-25) L 05/30/22 14:34 POC BUN 10 mg/dl (7-18) 05/30/22 14:34 BUN 4 mg/dl (6-23) L 05/31/22 09:05 Creatinine 0.48 mg/dl (0.6-1.2) L 05/31/22 09:05 POC Creatinine 0.6 mg/dl (0.6-1.3) 05/30/22 14:34 Est Cr Clr Drug Dosing 145.3 ml/min 05/31/22 09:05 Est GFR ( Amer) 143.2 ml/min 05/31/22 09:05 Est GFR (Non-Af Amer) 123.6 ml/min 05/31/22 09:05 BUN/Creatinine Ratio 8.3 (10-20) L 05/31/22 09:05 Glucose 107 mg/dl (70-99(Fasting)) H 05/31/22 09:05 POC Glucose (other) 128 mg/dl (70-99) H 05/30/22 14:34 Calcium 8.3 mg/dl (8.5-10.1) L 05/31/22 09:05 POC Ioniz Calcium Reed 1.28 mmol/l (1.12-1.32) 05/30/22 14:34 Magnesium 2.0 mg/dl (1.7-2.4) 05/31/22 09:05 Total Bilirubin 0.4 mg/dl (0.2-1.0) 05/31/22 09:05 Direct Bilirubin 0.1 mg/dl (0-0.2) 05/31/22 09:05 AST 13 U/L (13-39) 05/31/22 09:05 ALT 7 U/L (7-52) 05/31/22 09:05 Alkaline Phosphatase 55 U/L (34-104) 05/31/22 09:05 Troponin I High Sens 2.5 pg/ml (0-14) 05/30/22 14:20 Total Protein 6.1 gm/dl (6.0-8.3) 05/31/22 09:05 Albumin 3.5 gm/dl (3.4-5.0) 05/31/22 09:05 Lipase 23 U/L (11-82) 05/30/22 14:20 SARS-CoV-2, RNA, NAAT NEGATIVE (NEGATIVE) 05/30/22 16:03 Impressions Chest X-Ray 05/30/22 14:23 SINGLE VIEW CHEST CLINICAL HISTORY: Atypical chest pain. Tachycardia. FINDINGS: An AP, portable, upright chest radiograph is compared to chest x-ray and chest CT dated 03/08/2022. The cardiomediastinal silhouette is unremarkable. The lungs and pleural spaces are clear. No pneumothorax is seen. The bony thorax is grossly intact. IMPRESSION: No active disease in the chest. ACT 112: Negative or not required by law. Electronically signed by: Haroon Conley M.D. 05/30/2022 3:26 PM Chest CTA 05/30/22 14:58 CT ANGIOGRAPHY OF THE CHEST, PULMONARY EMBOLUS PROTOCOL CLINICAL HISTORY: Tachycardia. COMPARISON STUDY: Chest CT March 08, 2022. Chest radiograph performed earlier today. TECHNIQUE: Following IV administration of 117 mL of Optiray, helical axial images of the chest were obtained utilizing the pulmonary embolus protocol. Maximal intensity projections and sagittal and coronal reformats were viewed on an independent 3D workstation. IV contrast was administered without complication. Automated exposure control was utilized for the study. A dose lowering technique was utilized adhering to the principles of ALARA. CT DOSE: 363.10 mGy.cm FINDINGS: There are segmental pulmonary emboli within the bilateral lower lobes. Specifically, there are emboli within the arteries to the posterior basal segment of the right lower lobe and the lateral basal segment of the left lower lobe. No pulmonary infarct is noted. No CT evidence for right heart rate. Size of the heart is normal. No pericardial effusion. No thoracic lymphadenopathy is present. No pneumothorax or pleural effusion is noted. Groundglass opacities within the lower lobes represent atelectasis. No acute fracture within the visualized bony thorax. Visualized portions of the upper abdomen are unremarkable. IMPRESSION: Segmental pulmonary emboli within the bilateral lower lobes. No pulmonary infarct. No CT evidence for right heart strain. ACT 112: Negative or not required by law. Electronically signed by: Harinder Moreno M.D. 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 Found to have SVT with HR of 225-230 bpm, BP stable. She received iv adenosine 6mg followed by 12 mg with no response. DCCV of 50 folloed by 100 J did not help either. She was given iv lopresor 5 mg x2, with improvement of HR to 160 bpm. Cardiiology was consulted. Conscious sedation was considered but could not be done as patient had eaten just over 2 hours ago. Trial of IV procainamide infusion was considered but her HR decreased abruptly from 159 to 109 bpm with appearance of P waves. A third dose of lopressor 5 mg was administered and she converted to NSR. CT PE was done which showed bilateral segmental PE which likely caused the refractory SVT. She was started on heparin drip and monitored on tele. She was started on lopressor 25 bid. Echo was done which was unrevealing. Remained on NSR overnight. Seen by cardiology today and recommended increasing home toprol to 25 bid at discharge. Her eliquis cost is $50 a month and she is agreeable to the reina. Being discharged on eliquis for at least 3-6 months and follow up with PCP/Cardiology. She is comfortable and stable for discharge. SVT - likely d/t PE. Converted to NSR- details above - Echo reviewed and unremarkable - discharging on toprol 25 bid per cardiology - F/u with cardio in a month Bilateral segmental PE, likely provoked from recent embolization - 1st episode, hemodynamically stable, no right heart strain, no hypoxia or dyspnea - s/p heparin drip. Discharging on eliquis 10 mg bid for a week, then 5 mg bid for at least 3-6 months. Further management per PCP. She is uptodate on her pap and mammogram. Currently since it is likely provoked, I do not think hypercoag work up is strongly indicated, moreover she already received heparin drip which will skew the results- Will defer to PCP. If she is to develop recurrent DVT/PE in future, she will definitely need hypercoag work up and lifelong anticoagulation - CT chest 05/30- Segmental pulmonary emboli within the bilateral lower lobes. No pulmonary infarct. No CT evidence for right heart strain. Pelvic congestion syndrome s/p embolization Total Time Total Time Spent Total Time Spent (In Minutes): 40 Discharge Plan Discharge Items Patient Disposition: Home - Self-Care Reason For Visit: SVT Discharge Diagnosis: SVT, Bilateral segmental PE Activity: Resume your previous activity Non-emergency contact: Primary Care Provider Call non-emergency contact if: you have any medication questions and your symptoms worsen Follow-up/Referrals: Jesus Zuniga DO [Primary Care Provider] - (Date & Time 06/05/2022 11:00 AM Provider Shayy Stanton MD Department [facility] ) Diet: Heart Healthy Addtl Attending Provider Instructions: Continue eliquis 2 tab twice daily for 1 week, then 1 tab daily for at least 3-6 months. Your family doctor will decide if this needs to be prolonged or you will need any additional test. If you have more blood clots in future, would definitely recommend hypercoagulability work up. Increase your toprol to 25mg twice daily Follow up with cardiology in a month Follow up with the family doctor Pending Studies at Discharge: No Stand-Alone Forms: [employer], Smoking Cessation Medications and DC Order Prescriptions: New Eliquis 5 mg tablet 5 mg PO BID Qty: 60 RF: 0 Continued multivitamin Tablet 1 tab PO QAM RF: 0 ondansetron 4 mg tablet,disintegrating 4 mg PO Q6H PRN (Reason: nausea and vomiting) Qty: 10 RF: 0 magnesium oxide 400 mg (241.3 mg magnesium) Tablet 400 mg PO QAM Qty: 30 RF: 0 hydrocortisone 2.5 % cream 1 applic TOPICAL BID PRN (Reason: neck and chest) RF: 0 sertraline 50 mg tablet 100 mg PO QAM RF: 0 Nurtec ODT 75 mg tablet,disintegrating 75 mg PO DAILY PRN (Reason: Migraine Headache) RF: 0 Changed metoprolol succinate 25 mg tablet extended release 24 hr 25 mg PO BID Qty: 60 RF: 0 Discharge Orders: Discharge Order (Routine); Ordered 05/31/22 Ordered By: Ba Gardner Admission Data Admit Date/Time: 05/30/22 15:51 Attending Provider: Ba Gardner Admit Provider: Shai Fried Primary Care Provider: Jesus Zuniga Other Providers: Shai Fried ; Shabbir Bonilla Other Interventions: Discharge Summary Assessment (RN) Last Done: 05/31/22 13:14
--- NOTE | 2022-05-31 16:01 | Electrocardiogram Report ---
Test Reason : Blood Pressure : / mmHG Vent. Rate : 198 BPM Atrial Rate : 227 BPM P-R Int : 000 ms QRS Dur : 064 ms QT Int : 230 ms P-R-T Axes : 000 045 254 degrees QTc Int : 417 ms Poor data quality, interpretation may be adversely affected Supraventricular tachycardia Nonspecific ST and T wave abnormality Abnormal ECG When compared with ECG of 30-MAY-2022 14:45, No significant change was found Confirmed by Josh Doyle ([id number]) on 05/31/2022 4:01:15 PM Referred By: REFERRED SELF Confirmed By:Josh Doyle
--- NOTE | 2022-05-31 16:02 | Electrocardiogram Report ---
Test Reason : Blood Pressure : / mmHG Vent. Rate : 165 BPM Atrial Rate : 174 BPM P-R Int : 000 ms QRS Dur : 066 ms QT Int : 276 ms P-R-T Axes : 000 044 -47 degrees QTc Int : 457 ms Poor data quality, interpretation may be adversely affected Supraventricular tachycardia Nonspecific ST and T wave abnormality Abnormal ECG When compared with ECG of 30-MAY-2022 14:54, No significant change Confirmed by Josh Doyle ([id number]) on 05/31/2022 4:02:03 PM Referred By: REFERRED SELF Confirmed By:Josh Doyle
--- NOTE | 2022-05-31 16:06 | Electrocardiogram Report ---
Test Reason : Blood Pressure : / mmHG Vent. Rate : 099 BPM Atrial Rate : 099 BPM P-R Int : 170 ms QRS Dur : 064 ms QT Int : 350 ms P-R-T Axes : 019 044 022 degrees QTc Int : 449 ms Poor data quality, interpretation may be adversely affected Normal sinus rhythm Normal ECG When compared with ECG of 30-MAY-2022 14:57, Vent. rate has decreased BY 66 BPM Sinus rhythm has replaced Supraventricular tachycardia ST no longer depressed in Inferior leads ST no longer depressed in Lateral leads Nonspecific T wave abnormality, improved in Inferior leads Confirmed by Josh Doyle ([id number]) on 05/31/2022 4:06:00 PM Referred By: REFERRED SELF Confirmed By:Josh Doyle
--- NOTE | 2022-05-31 23:02 | Electrocardiogram Report ---
Test Reason : Blood Pressure : / mmHG Vent. Rate : 066 BPM Atrial Rate : 066 BPM P-R Int : 178 ms QRS Dur : 068 ms QT Int : 436 ms P-R-T Axes : 059 126 142 degrees QTc Int : 457 ms Poor data quality, interpretation may be adversely affected Normal sinus rhythm Suspect limb lead reversal Abnormal ECG When compared with ECG of 30-MAY-2022 16:09, Vent. rate has decreased BY 33 BPM Limb lead reversal is now suspected Confirmed by Josh Doyle ([id number]) on 05/31/2022 11:02:49 PM Referred By: REFERRED SELF Confirmed By:Josh Doyle
== END 2022-05-31 13:41 | disposition home or self-care (01) | DRG 308 ==
LOC: ED 14:03 → SUATTDRO 15:51 → 2S 15:51